=== PATIENT | male | born 1995 | race Caucasian/White ===

== ENCOUNTER → 2020-03-27 13:39 | Outpatient (CLI) | payer OTHER, SELFPAY ==
[2020-03-29 09:15] LABS: COVID19 Sendout Not Detected (Not Detect)
== END ==
PROVIDERS: Visit Provider Nurse Practitioner
DX: Z11.59 Encounter for screening for other viral diseases (principal)
CPT/HCPCS: 87635

== ENCOUNTER → 2020-04-20 | Outpatient (CLI) | payer OTHER, SELFPAY | PROVIDERS: Referring Provider Internal Medicine; Visit Provider Internal Medicine | DX: Z23 Encounter for immunization (principal) | CPT/HCPCS: 90471; 90686 ==

== ENCOUNTER → 2020-05-04 10:21 | Outpatient (CLI) | payer OTHER, SELFPAY ==
[2020-05-04 12:52] LABS: COVID19 -Nasal RAPID Negative (Negative)
== END ==
PROVIDERS: Visit Provider Physician Assistant
DX: R05 Cough (principal); J02.9 Acute pharyngitis, unspecified; R19.7 Diarrhea, unspecified
CPT/HCPCS: 87635

== ENCOUNTER → 2020-06-08 11:49 | Outpatient (CLI) | payer OTHER, SELFPAY ==
[2020-06-08 13:07] LABS: COVID19 -Nasal RAPID Negative (Negative)
== END ==
PROVIDERS: Visit Provider Physician Assistant
DX: Z11.59 Encounter for screening for other viral diseases (principal)
CPT/HCPCS: 87635

== ENCOUNTER 2020-08-01 19:09 | Emergency (ER) | payer OTHER, SELFPAY ==
[2020-08-01 19:32] VITALS: BP 125/79; PULSE 80; RESP 16; TEMP 36.8; O2SAT 100; BMI 21.5
--- NOTE | 2020-08-01 20:03 | ED.UPPEXIN ---
HPI - Extremity Injury (Upper) General Chief Complaint: Extremity Injury, Upper Stated Complaint: states pulled a muslce right shoulder Time Seen by Provider: 08/01/20 20:02 Source: patient Mode of arrival: Ambulatory Limitations: no limitations History of Present Illness HPI narrative: This is a 24-year-old male comes emergency department after pulling a muscle in his right shoulder. Patient states about 16;30 this afternoon patient was lifting a a approximately 30 lb bag of linen up with his right arm when he felt pain coming from the AC region and radiating down into the deltoid region. Patient denies any numbness, tingling or weakness. He states pushing down with his arm causes pain or if he tries to flex his arm beyond the level of the shoulder. Or if he tries to hold his arm straight out for long periods of time. Patient denies any prior injuries. He denies any neck, back or chest pain. Patient has not taken any medication for pain. He denies any other medical issues. No prior surgeries. No allergies to medications. Related Data Allergies Allergy/AdvReac Type Severity Reaction Status Date / Time No Known Drug Allergies Allergy Verified 08/01/20 19:33 Review of Systems Review of Systems ROS Unobtainable: All systems reviewed & are unremarkable except as noted in HPI and below Patient History Social History Smoking Status: Current every day smoker Smoking Status: Current every day smoker Substance Use Type: does not use Exam Narrative Exam Narrative: GENERAL: Alert and oriented x three, well-nourished, well-appearing male in mild distress. HEENT: Head normocephalic, atraumatic, EOMI, pupils reactive, face symmetric, moist mucous membranes NECK: Supple, full range of motion CARDIOVASCULAR: Regular rate and rhythm without murmurs, rubs or gallops. RESPIRATORY: Breath sounds equal bilaterally, no wheezes rales or rhonchi. ABDOMEN: Soft, nontender. Normoactive bowel sounds all 4 quadrants. No guarding or rebound, rigidity, no mass : No CVA tenderness BACK: No cervical, thoracic or lumbar vertebral point tenderness. Patient has normal range of motion. Patient's gait is normal. Muscle strength is 5/5 in upper extremities, call or contact centre coach is equal bilaterally so equal with push-pull. Patient has 2+ radial pulses bilaterally. No ecchymosis, bruising or erythema or swelling of the right shoulder. EXTREMITIES: Normal range of motion, no clubbing or edema. Neurovascularly intact. Patient does not have any distinct pain with palpation of the scapula, collar bone or over the AC joint but does develop discomfort at the proximal humeral head and several cm down. Patient has full range of motion but has increased pain when he extends or abduct his shoulder above the level of the shoulder. He does not have any pain when he touches his opposite shoulder, his opposite hip, or when he internally rotates and touches his back. Patient does have discomfort when he hold his arms out perfectly straight. Patient does not have any tenderness over the biceps tendon with rotation. NEUROLOGICAL: Cranial nerves II through XII grossly intact. Moving all extremities SKIN: Warm, dry, no petechiae, no rashes or lesions. Initial Vital Signs Initial Vital Signs: Vital Signs Temperature 98.3 F 08/01/20 19:32 Pulse Rate 80 08/01/20 19:32 Respiratory Rate 16 08/01/20 19:32 Blood Pressure 125/79 08/01/20 19:32 Pulse Oximetry 100 08/01/20 19:32 Course Orders Ordered: Discontinued Medications Ibuprofen (Ibuprofen 400 Mg Tablet) 800 mg PO NOW ONE Stop: 08/01/20 20:19 Last Admin: 08/01/20 20:22 Dose: 800 mg Documented by: BOOGIE Vital Signs Vital signs: Vital Signs - 8 hr 08/01/20 19:32 08/01/20 20:39 Temperature 98.3 F Pulse Rate 80 75 Respiratory Rate 16 16 Blood Pressure 125/79 119/70 Pulse Oximetry 100 100 MDM - Extremity Injury (Upper) MDM Narrative Medical decision making narrative: 24-year-old male arrives with complaint of musculoskeletal pain after lifting approximately 30 lb of linen. Patient continues to have symptoms. On exam patient does have some tenderness particularly with range of motion. No obvious tendon, ligamentous injury although this is a possibility. X-ray imaging was deferred as the likelihood of a bony injury is unlikely. Plan for RICE, NSAIDs and follow up if symptoms have not resolved for further evaluation. Discharge Plan Departure Patient Disposition: Home Clinical Impression: Right shoulder strain Instructions: DI for Shoulder Pain Activity Restrictions/Additional Instructions: Follow up with L&I in 1 week if no improvement. You may take ibuprofen to 600 mg every 6 hours as needed for pain and/or Tylenol up to a 1000 mg every 8 hours as needed for pain. Elevated affected body part to decrease swelling. OK to use ice pack on the affected body part. Use for 15-20 minutes each time, for 5-6x per day. If you develop worsening pain, numbness, tingling, discoloration of the affected body part, either see your doctor for an urgent re-assessment, or return to the Emergency Department. Return to the Emergency Department for any new or worsening symptoms. Stand Alone Forms: Work Release Note
[2020-08-01] MEDS: IBUPROFEN 400 MG TABLET 800 MG PO (20:22)
[2020-08-01 20:39] VITALS: BP 119/70; PULSE 75; RESP 16; O2SAT 100
== END 2020-08-01 20:40 | disposition home or self-care (01) ==
PROVIDERS: Emergency Provider Emergency Medicine
DX: S46.911A Strain of unspecified muscle, fascia and tendon at shoulder and upper arm level, right arm, initial encounter (principal); X50.0XXA Overexertion from strenuous movement or load, initial encounter; Y99.0 Civilian activity done for income or pay
CPT/HCPCS: 99281; 99282

== ENCOUNTER → 2020-08-25 11:14 | Outpatient (CLI) | payer OTHER, SELFPAY ==
[2020-08-25 11:34] LABS: Add Manual Diff / Slide Review NO; Basophils Absolute Auto 0 /uL (0-100); Basophils Percent Auto 0.3 % (0-2); Eosinophils Absolute Auto 200 /uL (0-450); Eosinophils Percent Auto 3.2 % (2-4); Hematocrit 45.3 % (41-53); Hemoglobin 15.1 g/dL (13.5-17.5); Lymphocytes Absolute Auto 2100 /uL (1100-4500); Lymphocytes Percent Auto 30.2 % (25-40); Mean Corpuscular HGB Conc 33.4 % (30-36); Mean Corpuscular Hemoglobin 29.4 PG (26-34); Monocytes Absolute Auto 600 /uL (0-900); Neutrophils Absolute Auto 4000 /uL (1500-7000); Neutrophils Percent Auto 58.3 % (50-75); Platelet Count 229 X10^3/uL (150-400); Red Blood Cell Count 5.15 X10^6/uL (4.5-5.9); Red Cell Distribution Width 12.5 % (11.6-14.8); White Blood Cell Count 6.9 X10^3/uL (4.5-11.0)
[2020-08-25 11:47] LABS: Erythrocyte Sedimentation Rate 2 MM/HR (0-15)
[2020-08-25 11:55] LABS: Alanine Aminotransferase 39 IU/L (<50); Albumin 4.5 g/dL (3.5-5.0); Albumin Globulin Ratio 1.2 (1.0-2.8); Alkaline Phosphatase 77 U/L (38-126); Aspartate Aminotransferase 43 IU/L (17-59); BUN Creatinine Ratio 17.6 (6-22); Bilirubin Total 1.1 mg/dL (0.2-1.3); Blood Urea Nitrogen 16 mg/dL (9-20); Calcium 10.4 mg/dL (8.4-10.2); Carbon Dioxide 31 mmol/L (22-32); Chloride 101 mmol/L (98-107); Estimated Glomerular Filt Rate > 60.0 mL/min (>60); Globulin 3.7 g/dL (1.7-4.1); Glucose 86 mg/dL (70-100); HEMOLYSIS < 15 (0-50); Potassium 4.7 mmol/L (3.4-5.1); Sodium 137 mmol/L (137-145); Total Protein 8.2 g/dL (6.3-8.2)
[2020-08-25 12:04] LABS: Rheumatoid Factor < 8.6 IU/mL (<12.0)
[2020-08-26 17:32] LABS: ANA Screen, IFA Negative (.)
[2020-09-01 17:36] LABS: HLA B27 Positive (.)
== END ==
PROVIDERS: PCP Family Medicine; Referring Provider Family Medicine; Visit Provider Family Medicine
DX: M25.50 Pain in unspecified joint (principal); M54.5 Low back pain
CPT/HCPCS: 36415; 80053; 81374; 85025; 85651; 86038; 86430

== ENCOUNTER → 2020-08-25 11:22 | Outpatient (CLI) | payer OTHER, SELFPAY ==
--- NOTE | 2020-08-25 11:24 | DI.RAD.S_ITS ---
PROCEDURE: XR LUMBAR SPINE 2-3V INDICATIONS: Chronic lower back pain TECHNIQUE: 3 views of the lumbar spine were acquired. COMPARISON: None. FINDINGS: Bones: 5 [id number] vertebrae are present. There is normal bony alignment. No vertebral body compression fractures. No suspicious bony lesions. Soft tissues: Overlying bowel gas pattern is normal. No suspicious soft tissue calcifications. IMPRESSION: Unremarkable radiographic examination of lumbar spine. Dictated by: Dany Caal M.D. on 08/25/2020 at 12:22 Approved by: Dany Caal M.D. on 08/25/2020 at 12:22
== END ==
PROVIDERS: PCP Family Medicine; Referring Provider Family Medicine; Visit Provider Family Medicine
DX: M54.5 Low back pain (principal); G89.29 Other chronic pain; M25.50 Pain in unspecified joint
CPT/HCPCS: 36415; 72100; 80053; 81374; 85025; 85651; 86038; 86430

== ENCOUNTER 2020-11-11 13:37 | Emergency (ER) | payer OTHER, SELFPAY ==
[2020-11-11 13:56] VITALS: BP 105/68; PULSE 66; RESP 15; TEMP 36.6; O2SAT 100; BMI 22.8
--- NOTE | 2020-11-11 15:37 | ED.BACK ---
HPI - Back Pain/Injury General Chief Complaint: Back Pain/Injury Stated Complaint: spine has seized, chronic pain Time Seen by Provider: 11/11/20 15:36 Source: patient Mode of arrival: Ambulatory Limitations: no limitations History of Present Illness HPI Narrative: 25-year-old male daily smoker with history of ankylosing spondylitis presents with a chief complaint of some midline back and rib pain that is been gradually worsening over the past weeks to months. He denies any injury and states this is the same pain that he has been dealing with though slightly worse. He denies any fever or chills. He has no history of IV drug abuse and does not use blood thinners. He denies any head or neck pain. He denies any chest pain, trouble breathing, cough. He has no nausea, vomiting or diarrhea. His pain is worse when he moves improves with rest. He denies any neurologic symptoms such as numbness, tingling or weakness. MD Complaint: back pain Onset (ago): month(s) Duration: constant and progressively worsening Similar Symptoms Previously: Yes Location: thoracic spine Severity: moderate Quality: sharp and aching Exacerbating factors: movement Associated symptoms: denies other symptoms Related Data Previous Rx's Medication Instructions Recorded valacyclovir 1 gram tablet 1,000 mg PO TID #21 tab 08/25/20 tramadol 50 mg tablet 50 mg PO Q8H PRN #20 tab 09/22/20 celecoxib 200 mg capsule 200 mg PO DAILY #30 cap 09/24/20 lamotrigine 25 mg tablet 50 mg PO DAILY #180 tab 09/24/20 hydrocodone-acetaminophen 1 tab PO Q4-6H PRN #10 tab 11/11/20 prednisone See Rx Instructions .ROUTE 11/11/20 .COMPLEX #30 tab Allergies Allergy/AdvReac Type Severity Reaction Status Date / Time No Known Drug Allergies Allergy Verified 11/11/20 13:58 Review of Systems Constitutional Constitutional: Denies chills, Denies fatigue, Denies fever(s), Denies frequent falls, Denies lethargy and Denies weakness Eyes Eyes: Denies change in vision, Denies eye discharge, Denies irritation and Denies loss of vision ENT Ears, Nose, Mouth, and Throat: Denies change in voice, Denies dizziness, Denies neck pain, Denies sore throat and Denies throat swelling Cardiovascular Cardiovascular: Denies chest pain, Denies irregular heart rhythm, Denies lightheadedness, Denies palpitations, Denies dyspnea, Denies dyspnea on exertion and Denies orthopnea Respiratory Respiratory: Denies cough, Denies dyspnea, Denies dyspnea on exertion and Denies wheezing Gastrointestinal Gastrointestinal: Denies abdominal pain, Denies change in bowel habits, Denies diarrhea, Denies nausea and Denies vomiting Musculoskeletal Musculoskeletal: Reports back pain, Denies neck pain and Denies numbness Integumentary/Breasts Skin/Breast: Denies pruritus, Denies erythema, Denies rash and Denies wounds Neurologic Neurologic: Denies behavioral changes, Denies confusion, Denies dizziness, Denies frequent falls, Denies loss of vision, Denies numbness and Denies weakness Psychiatric Psychiatric: Denies anxiety, Denies behavioral changes, Denies confusion, Denies depression, Denies homicidal ideation and Denies suicidal ideation Endocrine Endocrine: Denies fatigue, Denies flushing and Denies palpitations Hematologic/Lymphatic Hematologic/Lymphatic: Denies easy bruising Allergic/Immunologic Allergic/Immunologic: Denies urticaria, Denies throat swelling and Denies wheezing Patient History Medical History Anxiety (~2012) Bipolar disorder Chronic back pain (~2019) HIV (human immunodeficiency virus infection) (~2018) HSV (herpes simplex virus) anogenital infection Low back pain Migraines (~2013) Peptic ulcer disease (~2010) Polyarthralgia Shoulder pain (~2019) Tinnitus (~2018) Family History Mother Mental health problem Sister Suicide Mental health problem Sister Mental health problem Grandmother Cancer Mental health problem Grandfather Cancer History of heart disease Grandmother Arthritis Social History Smoking Status: Current every day smoker Smoking Status: Current every day smoker alcohol intake frequency: holidays/special occasions only Substance Use Type: does not use Exam Initial Vital Signs Initial Vital Signs: Vital Signs Temperature 97.9 F 11/11/20 13:56 Pulse Rate 66 11/11/20 13:56 Respiratory Rate 15 11/11/20 13:56 Blood Pressure 105/68 11/11/20 13:56 Pulse Oximetry 100 11/11/20 13:56 Course Vital Signs Vital signs: Vital Signs - 8 hr 11/11/20 13:56 Temperature 97.9 F Pulse Rate 66 Respiratory Rate 15 Blood Pressure 105/68 Pulse Oximetry 100 MDM - Back Pain/Injury MDM Narrative Medical decision making narrative: Patient with ongoing, slowly worsening back pain and a diagnosis of ankylosing spondylitis. He has no trauma and no systemic findings such as fever chills. He has no numbness, tingling or weakness. Multiple etiologies of back pain considered including; Epidural abscess, cauda equina, mass occupying lesion, and other considered, but thought unlikely given, history, physical. Extensive return precautions discussed and questions answered to his apparent satisfaction Discharge Plan Departure Patient Disposition: Home Clinical Impression: Chronic back pain Qualifiers: Back pain location: thoracic back pain Back pain laterality: unspecified Qualified Code(s): M54.6 - Pain in thoracic spine Instructions: DI for Back Strain or Sprain Activity Restrictions/Additional Instructions: *You have been diagnosed with [back pain likely related to her ankylosing spondylitis. There is no evidence of any neuro surgical emergency such as abscess, bleeding or other] *What to do: *Please continue to take your regular medications as directed. [x ] New medication prescriptions sent to your pharmacy: [[facility] in [place]] [ ] New medication written as a paper prescription [ ] No new medications given *Please follow up with your primary care provider in 2-3 days, call for an appointment. Let them know you were seen in the Emergency Department and that we ask that you be seen in follow up. We will electronically transmit a record of today's note if your PCP is in our system *If you do not have a primary care provider please contact the [facility] Resource line at [phone]. They will ask some questions about your medical history and help get you set up with a doctor in the community. *Return to Emergency Department if you should have any new, worsening or concerning symptoms, such as [fever greater than 101 F, shaking chills, loss of control of bowel or bladder, weakness in your legs worsening pain, persistent vomiting or other bothersome symptoms] Prescriptions: New prednisone 10 mg tablet See Rx Instructions .ROUTE .COMPLEX Qty: 30 RF: 0 hydrocodone-acetaminophen 5-325 mg tablet 1 tab PO Q4-6H PRN (Reason: pain) Qty: 10 RF: 0 No Action tramadol 50 mg tablet 50 mg PO Q8H PRN (Reason: pain) Qty: 20 RF: 0 valacyclovir 1 gram tablet 1,000 mg PO TID Qty: 21 RF: 3 lamotrigine [Lamictal] 25 mg tablet 50 mg PO DAILY Qty: 180 RF: 1 celecoxib [Celebrex] 200 mg capsule 200 mg PO DAILY Qty: 30 RF: 2 Referrals: Ajith Martin DO [Primary Care Provider] -
[2020-11-11 16:30] VITALS: BP 121/88; PULSE 65; O2SAT 100
== END 2020-11-11 16:32 | disposition home or self-care (01) ==
PROVIDERS: Emergency Provider Emergency Medicine; PCP Family Medicine
DX: M54.6 Pain in thoracic spine (principal)
CPT/HCPCS: 99281

== ENCOUNTER 2020-11-15 13:00 | Outpatient (RCR) | payer OTHER, SELFPAY ==
--- NOTE | 2020-09-27 16:53 | PT.OIE ---
Current Diagnoses Low back pain (09/27/20) Past Medical History (Last Updated 09/22/20 @ 21:12 by Peggy Ordonez) Anxiety (~2012) Bipolar disorder Chronic back pain (~2019) HIV (human immunodeficiency virus infection) (~2019) HSV (herpes simplex virus) anogenital infection Low back pain Migraines (~2013) Peptic ulcer disease (~2010) Polyarthralgia Shoulder pain (~2019) Tinnitus (~2018) Visit Care Team Role Provider Type Ajith Martin DO Attending Provider Physician Primary Care Provider Referring Provider Specialty: [facility] Address: [address] [place] [address], [facility] Email: [email or web address] Physical Therapy Initial Evaluation PT-OP-A Visit Information Start: 09/27/20 16:16 Freq: Status: Active Protocol: Document 09/27/20 16:16 (Rec: 09/27/20 16:52 [email or web address]) Out-Patient Physical Therapy Visit Information Visit Information Visit Type Initial Evaluation Visit Start Time 13:00 Visit Stop Time 13:45 Total Visit Minutes 45 Visit Number 07/19 Number of [employer] OFFICER Visits 0 Evaluation Information Evaluation Date 09/27/20 PT-OP-B Current Condition Start: 09/27/20 16:16 Freq: Status: Active Protocol: Document 09/27/20 16:16 (Rec: 09/27/20 16:52 [email or web address]) Current Condition History of Current Condition Onset Date 4-6 months ago Current Complaints LBP, radiating pain and soreness to posterior thighs History of Current Condition pt is 25-year-old male presents to the clinic with ongoing lower back pain since 4-6 months ago without any injury. He was recently diagnosed with ankylosing spondylitis based on his HLA- B27 test but X-rays shows negative finding. Pt reports his back pain varies depends on the day. Worst at sleep and feels like his back is fused in the morning. Staying in one position also feels stiff to him but moving around tends to manage his pain. Pt has been wearing OTC back brace all the time to reduce his back pain as well. He noticed he cannot bend forward d/t stiffness and significant pain . 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 Prior Treatments and Tests 08/25/20 IMPRESSION: Unremarkable radiographic examination of lumbar spine. Personal Factors Other Personal Factors That May Effect bipolar disorder type 2 Therapy/Recovery depression PT-OP-C Subjective Start: 09/27/20 16:16 Freq: Status: Active Protocol: Document 09/27/20 16:16 HH (Rec: 09/27/20 16:52 [email or web address]) Patient Questionnaires Oswestry Low Back Index Oswestry Score 26 Oswestry Impairment 20 to 39% Impaired (Score 20- 39) OP-PT Pain Assessment Location posterior thighs Intensity 4 Scale Used Numeric (0 - 10) Description Radiating Frequency Frequent Pain Aggravating Factors Sitting,Bending Pain Alleviating Factors Standing,Exercise LBP Pain Location Details lumbar region Intensity 6 Scale Used Numeric (0 - 10) Description Aching,Dull,Radiating Frequency Frequent Pain Aggravating Factors Position,Sitting,Bending Pain Alleviating Factors Exercise PT-OP-D Balance Start: 09/27/20 16:16 Freq: Status: Active Protocol: Document 09/27/20 16:16 HH (Rec: 09/27/20 16:52 [email or web address]) Balance Tests Single Limb Standing Single Limb- Right WFL Single Limb- Left WFL PT-OP-F Manual Assessment Start: 09/27/20 16:16 Freq: Status: Active Protocol: Document 09/27/20 16:16 HH (Rec: 09/27/20 16:52 [email or web address]) Manual Assessments Soft Tissue Assessment Soft Tissue Mobility Assessment mild hypertonicity at lumbar paraspinals bilaterally L>R PT-OP-H Neuro Start: 09/27/20 16:16 Freq: Status: Active Protocol: Document 09/27/20 16:16 HH (Rec: 09/27/20 16:52 [email or web address]) Sensation Evaluation Gross Sensation Gross Sensation WNL Deep Tendon Reflex & Clonus Assessment Deep Tendon Reflex Bilateral Achilles Deep Tendon Reflex 2+ Normal Bilateral Patellar Deep Tendon Reflex 2+ Normal PT-OP-J Posture/Palpation/Skin Start: 09/27/20 16:16 Freq: Status: Active Protocol: Document 09/27/20 16:16 HH (Rec: 09/27/20 16:52 [email or web address]) Posture Evaluation Position Standing T-Spine Posture Flattened L-Spine Posture Flattened,Decreased Lordosis Pelvis Posture Posterior Tilted Knee Posture (L) Genu Recurvatum,(R) Genu Recurvatum PT-OP-K Range of Motion Start: 09/27/20 16:16 Freq: Status: Active Protocol: Document 09/27/20 16:16 HH (Rec: 09/27/20 16:52 [email or web address]) Lumbar Spine Range of Motion Lumbar Spine Active Percentage Testing Position Standing ROM Limitations Soft Tissue Tightness,Pain Comments toe touch test= significant pain noted 14 inches from floor, lack of pelvic rotation and minimal lumbar segmental flexion noted. lateral flexion R= 15 inches lateral flexion L= 16 inches extension = WFL, shoulder pass heels Hip Goniometric Range of Motion Hip Right Active Hip ROM WFL Yes Straight Leg Raise 85 Left Active Hip ROM WFL Yes Straight Leg Raise 80 PT-OP-L Special Tests Start: 09/27/20 16:16 Freq: Status: Active Protocol: Document 09/27/20 16:16 HH (Rec: 09/27/20 16:52 [email or web address]) Special Tests Hip Special Tests Straight Leg Raise Test Results -ve Comments tightness noted at HS Scour Test Test Results -ve JET Test Results -ve PT-OP-M Strength Start: 09/27/20 16:16 Freq: Status: Active Protocol: Document 09/27/20 16:16 HH (Rec: 09/27/20 16:52 [email or web address]) Hip Strength Hip Manual Muscle Testing Right Flexion (L2) 4+ Good+ Extension (S1) 4+ Good+ Abduction 4+ Good+ Adduction 4+ Good+ External Rotation 4+ Good+ Internal Rotation 4+ Good+ Left Flexion (L2) 4 Good Extension (S1) 4+ Good+ Abduction 4+ Good+ Adduction 4+ Good+ External Rotation 4+ Good+ Internal Rotation 4+ Good+ Knee Strength Knee Manual Muscle Testing Right Flexion (S2) 5 Normal Extension (L3) 5 Normal Left Flexion (S2) 5 Normal Extension (L3) 5 Normal Ankle/Foot Strength Ankle and Foot Manual Muscle Testing Right Dorsiflexion (L4) 5 Normal Plantarflexion (S1) 5 Normal Left Dorsiflexion (L4) 5 Normal Plantarflexion (S1) 5 Normal PT-OP-T Assessment and Plan Start: 09/27/20 16:16 Freq: Status: Active Protocol: Document 09/27/20 16:16 (Rec: 09/27/20 16:52 [email or web address]) Physical Therapy Assessment Rehab Potential Rehabilitation Potential Good Evaluation Complexity Number of Personal Factors/Comorbidities 1-2 Number of Body Systems Impaired 1-2 Clinical Presentation at Evaluation Stable Impairments Impairments Activity Tolerance,Balance, Functional Activities, Functional Mobility,Gait,Pain, Posture,Sensation,Soft Tissue Mobility,Strength,Tone Goals HEP Impairment pt does not have a HEP Short Term Goal (STG) pt will be compliant to complete HEP safely and independently to improve his overall lumbar mobility and strength STG Duration 8 weeks activity tolerance Impairment pt cannot sit >30 mins, and needed to wear back brace Short Term Goal (STG) pt will be able to sit >30 mins without increase of back pain and able to wean off from using back brace to only at work. STG Duration 4 weeks Hotel Receptionist Goal (LTG) pt will be able to sit >1 hour without increase of back pain and able to completely wean off from wearing back brace LTG Duration 8 weeks pain Impairment pt has pain 6/10 frequently Short Term Goal (STG) pt will have no more than 4/10 pain in a daily basis STG Duration 4weeks Hotel Receptionist Goal (LTG) pt will have no more than 2/10 pain in a daily basis so pt can have more than 6 hours of sleep per day. LTG Duration 8 weeks oswestry Impairment pt scores 26 on Oswestry Short Term Goal (STG) pt will score <20 on Oswestry to improve his quality of life STG Duration 4 weeks Hotel Receptionist Goal (LTG) pt will score <15 on Oswestry to improve his quality of life LTG Duration 8 weeks Assessment Summary Assessment Pt is a 25 yo male here for his new ongoing LBP since 4-6 months ago. Pt was recently diagnosed with ankylosing spondylitis who has a family hx of this dx as well. However , his recent x-ray did not show visible joint changes. Upon assessment, pt does show matching symptoms of who has significant stiffness and pain in the morning / prolonged position. He has very limited lumbar flexion d/ t pain and prolonged use of his back brace. Pt denies tingling/ numbness but does have radiating pain down to his posterior thighs occasionally. His sensation/ strength remains intact. He will benefit from skilled therapy to improve his quality of life, sleep, and overall pain by increasing spinal mobility, stability and strength . Physical Therapy Plan Frequency and Duration Frequency of Treatment 2x/Week Duration of Treatment 8 weeks Plan of Care Start Date 09/27/20 Plan of Care End Date 11/26/20 Therapeutic Interventions Therapeutic Interventions Balance Training,Home Exercise Program,Joint Mobilizations, Manual Therapy,Neuromuscular Re-education,Patient/Caregiver Education,Self-Care/Home Management,Soft Tissue Mobilization,Taping, Therapeutic Activities, Therapeutic Exercises Modalities Cold Pack/Ice Massage,Electric Stimulation,Hot Packs, Infrared Therapy,Traction- Mechanical,Ultrasound Next Visit Focus/Plan Next Note Type Treatment Note Next Visit Plan check flexion extension side plank endurance supine knee to chest open book saeted flexion cat camel. childpose
--- NOTE | 2020-09-30 13:42 | PT.OTN ---
Current Diagnoses Low back pain (09/30/20) Physical Therapy Treatment Note PT-OP-A Visit Information Start: 09/27/20 16:16 Freq: Status: Active Protocol: Document 09/30/20 12:58 HH (Rec: 09/30/20 13:42 HH [id number]) Out-Patient Physical Therapy Visit Information Visit Information Visit Type Treatment Note Visit Start Time 13:01 Visit Stop Time 13:45 Total Visit Minutes 44 Visit Number 2 Number of RECYCLING CENTER OPERATOR Visits 0 PT-OP-B Current Condition Start: 09/27/20 16:16 Freq: Status: Active Protocol: Document 09/27/20 16:16 HH (Rec: 09/27/20 16:52 HH [email or web address]) Current Condition History of Current Condition Onset Date 4-6 months ago Current Complaints LBP, radiating pain and soreness to posterior thighs History of Current Condition pt is 25-year-old male presents to the clinic with ongoing lower back pain since 4-6 months ago without any injury. He was recently diagnosed with ankylosing spondylitis based on his HLA- B27 test but X-rays shows negative finding. Pt reports his back pain varies depends on the day. Worst at sleep and feels like his back is fused in the morning. Staying in one position also feels stiff to him but moving around tends to manage his pain. Pt has been wearing OTC back brace all the time to reduce his back pain as well. He noticed he cannot bend forward d/t stiffness and significant pain . 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 Prior Treatments and Tests 08/25/20 IMPRESSION: Unremarkable radiographic examination of lumbar spine. Personal Factors Other Personal Factors That May Effect bipolar disorder type 2 Therapy/Recovery depression PT-OP-C Subjective Start: 09/27/20 16:16 Freq: Status: Active Protocol: Document 09/30/20 12:58 HH (Rec: 09/30/20 13:42 HH [id number]) OP-PT Subjective Patient Comments Patient Comments Im doing pretty good Patient Reported Progress Same PT-OP-D Balance Start: 09/27/20 16:16 Freq: Status: Active Protocol: Document 09/27/20 16:16 HH (Rec: 09/27/20 16:52 HH [email or web address]) Balance Tests Single Limb Standing Single Limb- Right WFL Single Limb- Left WFL PT-OP-F Manual Assessment Start: 09/27/20 16:16 Freq: Status: Active Protocol: Document 09/27/20 16:16 HH (Rec: 09/27/20 16:52 [email or web address]) Manual Assessments Soft Tissue Assessment Soft Tissue Mobility Assessment mild hypertonicity at lumbar paraspinals bilaterally L>R PT-OP-H Neuro Start: 09/27/20 16:16 Freq: Status: Active Protocol: Document 09/27/20 16:16 HH (Rec: 09/27/20 16:52 [email or web address]) Sensation Evaluation Gross Sensation Gross Sensation WNL Deep Tendon Reflex & Clonus Assessment Deep Tendon Reflex Bilateral Achilles Deep Tendon Reflex 2+ Normal Bilateral Patellar Deep Tendon Reflex 2+ Normal PT-OP-J Posture/Palpation/Skin Start: 09/27/20 16:16 Freq: Status: Active Protocol: Document 09/27/20 16:16 HH (Rec: 09/27/20 16:52 [email or web address]) Posture Evaluation Position Standing T-Spine Posture Flattened L-Spine Posture Flattened,Decreased Lordosis Pelvis Posture Posterior Tilted Knee Posture (L) Genu Recurvatum,(R) Genu Recurvatum PT-OP-K Range of Motion Start: 09/27/20 16:16 Freq: Status: Active Protocol: Document 09/27/20 16:16 HH (Rec: 09/27/20 16:52 [email or web address]) Lumbar Spine Range of Motion Lumbar Spine Active Percentage Testing Position Standing ROM Limitations Soft Tissue Tightness,Pain Comments toe touch test= significant pain noted 14 inches from floor, lack of pelvic rotation and minimal lumbar segmental flexion noted. lateral flexion R= 15 inches lateral flexion L= 16 inches extension = WFL, shoulder pass heels Hip Goniometric Range of Motion Hip Right Active Hip ROM WFL Yes Straight Leg Raise 85 Left Active Hip ROM WFL Yes Straight Leg Raise 80 PT-OP-L Special Tests Start: 09/27/20 16:16 Freq: Status: Active Protocol: Document 09/27/20 16:16 HH (Rec: 09/27/20 16:52 [email or web address]) Special Tests Hip Special Tests Straight Leg Raise Test Results -ve Comments tightness noted at HS Scour Test Test Results -ve JET Test Results -ve PT-OP-M Strength Start: 09/27/20 16:16 Freq: Status: Active Protocol: Document 09/27/20 16:16 HH (Rec: 09/27/20 16:52 HH [email or web address]) Hip Strength Hip Manual Muscle Testing Right Flexion (L2) 4+ Good+ Extension (S1) 4+ Good+ Abduction 4+ Good+ Adduction 4+ Good+ External Rotation 4+ Good+ Internal Rotation 4+ Good+ Left Flexion (L2) 4 Good Extension (S1) 4+ Good+ Abduction 4+ Good+ Adduction 4+ Good+ External Rotation 4+ Good+ Internal Rotation 4+ Good+ Knee Strength Knee Manual Muscle Testing Right Flexion (S2) 5 Normal Extension (L3) 5 Normal Left Flexion (S2) 5 Normal Extension (L3) 5 Normal Ankle/Foot Strength Ankle and Foot Manual Muscle Testing Right Dorsiflexion (L4) 5 Normal Plantarflexion (S1) 5 Normal Left Dorsiflexion (L4) 5 Normal Plantarflexion (S1) 5 Normal PT-OP-Q Treatments Start: 09/27/20 16:16 Freq: Status: Active Protocol: Document 09/30/20 12:58 HH (Rec: 09/30/20 13:42 [id number]) Therapeutic Exercises Supine Exercises knee to chest Reps/Minutes 8 x2 Comments for HEP Prone Exercises cat camel Side bilateral Reps/Minutes 8 x2 Comments for HEP, cues on segmental control Sidelying Exercises open book Reps/Minutes 8 x2 Comments for HEP Sitting Exercises seated flexion Sitting Exercise Name floor touch Reps/Minutes 8 x2 Comments for HEP Manual Therapy Treatment Soft Tissue Mobilization QL Mobilization Type Sustained Pressure,Trigger Point Release Intensity/Depth Deep Body Position Sidelying Paraspinals Body Location lumbar Mobilization Type Sustained Pressure,Trigger Point Release Intensity/Depth Deep Body Position Prone PT-OP-T Assessment and Plan Start: 09/27/20 16:16 Freq: Status: Active Protocol: Document 09/30/20 12:58 (Rec: 09/30/20 13:42 [id number]) Physical Therapy Assessment Goals HEP Impairment pt does not have a HEP Short Term Goal (STG) pt will be compliant to complete HEP safely and independently to improve his overall lumbar mobility and strength STG Duration 8 weeks activity tolerance Impairment pt cannot sit >30 mins, and needed to wear back brace Short Term Goal (STG) pt will be able to sit >30 mins without increase of back pain and able to wean off from using back brace to only at work. STG Duration 4 weeks [facility] Goal (LTG) pt will be able to sit >1 hour without increase of back pain and able to completely wean off from wearing back brace LTG Duration 8 weeks pain Impairment pt has pain 6/10 frequently Short Term Goal (STG) pt will have no more than 4/10 pain in a daily basis STG Duration 4weeks Armhole Baster Jumpbasting Goal (LTG) pt will have no more than 2/10 pain in a daily basis so pt can have more than 6 hours of sleep per day. LTG Duration 8 weeks oswestry Impairment pt scores 26 on Oswestry Short Term Goal (STG) pt will score <20 on Oswestry to improve his quality of life STG Duration 4 weeks Armhole Baster Jumpbasting Goal (LTG) pt will score <15 on Oswestry to improve his quality of life LTG Duration 8 weeks Assessment Summary Assessment This session focused on lumbar mobility and pt sandra session very well. Pt has difficulty with segmental flexion at lumbar spine but improved after cueing. Will assess pt's core endurance next time Physical Therapy Plan Frequency and Duration Frequency of Treatment 2x/Week Duration of Treatment 8 weeks Plan of Care Start Date 09/27/20 Plan of Care End Date 11/26/20 Therapeutic Interventions Therapeutic Interventions Balance Training,Home Exercise Program,Joint Mobilizations, Manual Therapy,Neuromuscular Re-education,Patient/Caregiver Education,Self-Care/Home Management,Soft Tissue Mobilization,Taping, Therapeutic Activities, Therapeutic Exercises Modalities Cold Pack/Ice Massage,Electric Stimulation,Hot Packs, Infrared Therapy,Traction- Mechanical,Ultrasound Next Visit Focus/Plan Next Note Type Treatment Note Next Visit Plan check flexion extension side plank endurance supine knee to chest open book saeted flexion cat camel. childpose
--- NOTE | 2020-10-04 13:48 | PT.OTN ---
Current Diagnoses Low back pain (10/04/20) Physical Therapy Treatment Note PT-OP-A Visit Information Start: 09/27/20 16:16 Freq: Status: Active Protocol: Document 10/04/20 12:58 HH (Rec: 10/04/20 13:47 HH [id number]) Out-Patient Physical Therapy Visit Information Visit Information Visit Type Treatment Note Visit Start Time 13:00 Visit Stop Time 13:43 Total Visit Minutes 43 Visit Number 3 Number of RAND MAKER Visits 0 PT-OP-B Current Condition Start: 09/27/20 16:16 Freq: Status: Active Protocol: Document 09/27/20 16:16 HH (Rec: 09/27/20 16:52 HH [email or web address]) Current Condition History of Current Condition Onset Date 4-6 months ago Current Complaints LBP, radiating pain and soreness to posterior thighs History of Current Condition pt is 25-year-old male presents to the clinic with ongoing lower back pain since 4-6 months ago without any injury. He was recently diagnosed with ankylosing spondylitis based on his HLA- B27 test but X-rays shows negative finding. Pt reports his back pain varies depends on the day. Worst at sleep and feels like his back is fused in the morning. Staying in one position also feels stiff to him but moving around tends to manage his pain. Pt has been wearing OTC back brace all the time to reduce his back pain as well. He noticed he cannot bend forward d/t stiffness and significant pain . 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 Prior Treatments and Tests 08/25/20 IMPRESSION: Unremarkable radiographic examination of lumbar spine. Personal Factors Other Personal Factors That May Effect bipolar disorder type 2 Therapy/Recovery depression PT-OP-C Subjective Start: 09/27/20 16:16 Freq: Status: Active Protocol: Document 10/04/20 12:58 HH (Rec: 10/04/20 13:47 HH [id number]) OP-PT Subjective Patient Comments Patient Comments I have no pain today and i woke up just fine. The ex has been helping Patient Reported Progress Improving PT-OP-D Balance Start: 09/27/20 16:16 Freq: Status: Active Protocol: Document 09/27/20 16:16 HH (Rec: 09/27/20 16:52 [email or web address]) Balance Tests Single Limb Standing Single Limb- Right WFL Single Limb- Left WFL PT-OP-E Functional Tests Start: 09/27/20 16:16 Freq: Status: Active Protocol: Document 10/04/20 12:58 HH (Rec: 10/04/20 13:47 [id number]) Functional Tests Other trunk extensor endurance test Comment extension= 74s trunk flexion test Comment flexion= 36s plank Name of Test side plank L, R Comment L= 31 s, R= 32s PT-OP-F Manual Assessment Start: 09/27/20 16:16 Freq: Status: Active Protocol: Document 09/27/20 16:16 HH (Rec: 09/27/20 16:52 [email or web address]) Manual Assessments Soft Tissue Assessment Soft Tissue Mobility Assessment mild hypertonicity at lumbar paraspinals bilaterally L>R PT-OP-H Neuro Start: 09/27/20 16:16 Freq: Status: Active Protocol: Document 09/27/20 16:16 HH (Rec: 09/27/20 16:52 [email or web address]) Sensation Evaluation Gross Sensation Gross Sensation WNL Deep Tendon Reflex & Clonus Assessment Deep Tendon Reflex Bilateral Achilles Deep Tendon Reflex 2+ Normal Bilateral Patellar Deep Tendon Reflex 2+ Normal PT-OP-J Posture/Palpation/Skin Start: 09/27/20 16:16 Freq: Status: Active Protocol: Document 09/27/20 16:16 HH (Rec: 09/27/20 16:52 [email or web address]) Posture Evaluation Position Standing T-Spine Posture Flattened L-Spine Posture Flattened,Decreased Lordosis Pelvis Posture Posterior Tilted Knee Posture (L) Genu Recurvatum,(R) Genu Recurvatum PT-OP-K Range of Motion Start: 09/27/20 16:16 Freq: Status: Active Protocol: Document 09/27/20 16:16 HH (Rec: 09/27/20 16:52 [email or web address]) Lumbar Spine Range of Motion Lumbar Spine Active Percentage Testing Position Standing ROM Limitations Soft Tissue Tightness,Pain Comments toe touch test= significant pain noted 14 inches from floor, lack of pelvic rotation and minimal lumbar segmental flexion noted. lateral flexion R= 15 inches lateral flexion L= 16 inches extension = WFL, shoulder pass heels Hip Goniometric Range of Motion Hip Right Active Hip ROM WFL Yes Straight Leg Raise 85 Left Active Hip ROM WFL Yes Straight Leg Raise 80 PT-OP-L Special Tests Start: 09/27/20 16:16 Freq: Status: Active Protocol: Document 09/27/20 16:16 HH (Rec: 09/27/20 16:52 [email or web address]) Special Tests Hip Special Tests Straight Leg Raise Test Results -ve Comments tightness noted at HS Scour Test Test Results -ve JET Test Results -ve PT-OP-M Strength Start: 09/27/20 16:16 Freq: Status: Active Protocol: Document 09/27/20 16:16 HH (Rec: 09/27/20 16:52 [email or web address]) Hip Strength Hip Manual Muscle Testing Right Flexion (L2) 4+ Good+ Extension (S1) 4+ Good+ Abduction 4+ Good+ Adduction 4+ Good+ External Rotation 4+ Good+ Internal Rotation 4+ Good+ Left Flexion (L2) 4 Good Extension (S1) 4+ Good+ Abduction 4+ Good+ Adduction 4+ Good+ External Rotation 4+ Good+ Internal Rotation 4+ Good+ Knee Strength Knee Manual Muscle Testing Right Flexion (S2) 5 Normal Extension (L3) 5 Normal Left Flexion (S2) 5 Normal Extension (L3) 5 Normal Ankle/Foot Strength Ankle and Foot Manual Muscle Testing Right Dorsiflexion (L4) 5 Normal Plantarflexion (S1) 5 Normal Left Dorsiflexion (L4) 5 Normal Plantarflexion (S1) 5 Normal PT-OP-Q Treatments Start: 09/27/20 16:16 Freq: Status: Active Protocol: Document 10/04/20 12:58 (Rec: 10/04/20 13:47 [id number]) Therapeutic Exercises Supine Exercises hamstrings stretch Side bilateral Reps/Minutes 15 sec hold x5 Prone Exercises cat camel Side bilateral Reps/Minutes 8 x2 Comments cues on segmental control, pressure at L SIJ Sidelying Exercises open book Reps/Minutes 8 x2 Sitting Exercises seated flexion Sitting Exercise Name floor touch Reps/Minutes 8 x2 Standing Exercises jose curl Equipment Used 10lbs ball Reps/Minutes 8 x1 Comments cues on segmental flexion Manual Therapy Treatment Soft Tissue Mobilization QL Mobilization Type Sustained Pressure,Trigger Point Release Intensity/Depth Deep Body Position Sidelying Comments less discomfort noted . Paraspinals Body Location lumbar Mobilization Type Sustained Pressure,Trigger Point Release Intensity/Depth Deep Body Position Prone Comments less discomfort noted . PT-OP-T Assessment and Plan Start: 09/27/20 16:16 Freq: Status: Active Protocol: Document 10/04/20 12:58 HH (Rec: 10/04/20 13:47 HH [id number]) Physical Therapy Assessment Goals HEP Impairment pt does not have a HEP Short Term Goal (STG) pt will be compliant to complete HEP safely and independently to improve his overall lumbar mobility and strength STG Duration 8 weeks activity tolerance Impairment pt cannot sit >30 mins, and needed to wear back brace Short Term Goal (STG) pt will be able to sit >30 mins without increase of back pain and able to wean off from using back brace to only at work. STG Duration 4 weeks Insurance Administrative Assistant Goal (LTG) pt will be able to sit >1 hour without increase of back pain and able to completely wean off from wearing back brace LTG Duration 8 weeks pain Impairment pt has pain 6/10 frequently Short Term Goal (STG) pt will have no more than 4/10 pain in a daily basis STG Duration 4weeks Insurance Administrative Assistant Goal (LTG) pt will have no more than 2/10 pain in a daily basis so pt can have more than 6 hours of sleep per day. LTG Duration 8 weeks oswestry Impairment pt scores 26 on Oswestry Short Term Goal (STG) pt will score <20 on Oswestry to improve his quality of life STG Duration 4 weeks Insurance Administrative Assistant Goal (LTG) pt will score <15 on Oswestry to improve his quality of life LTG Duration 8 weeks Assessment Summary Assessment Pt reports of no pain today with good mobility. He also shows improved segmental flexion mobility as well. Added HS stretch today. Physical Therapy Plan Frequency and Duration Frequency of Treatment 2x/Week Duration of Treatment 8 weeks Plan of Care Start Date 09/27/20 Plan of Care End Date 11/26/20 Therapeutic Interventions Therapeutic Interventions Balance Training,Home Exercise Program,Joint Mobilizations, Manual Therapy,Neuromuscular Re-education,Patient/Caregiver Education,Self-Care/Home Management,Soft Tissue Mobilization,Taping, Therapeutic Activities, Therapeutic Exercises Modalities Cold Pack/Ice Massage,Electric Stimulation,Hot Packs, Infrared Therapy,Traction- Mechanical,Ultrasound Next Visit Focus/Plan Next Note Type Treatment Note Next Visit Plan check flexion extension side plank endurance supine knee to chest open book saeted flexion cat camel. childpose
--- NOTE | 2020-10-11 13:55 | PT.OTN ---
Current Diagnoses Low back pain (10/11/20) Physical Therapy Treatment Note PT-OP-A Visit Information Start: 09/27/20 16:16 Freq: Status: Active Protocol: Document 10/11/20 13:05 SP (Rec: 10/11/20 14:29 SP [id number]) Out-Patient Physical Therapy Visit Information Visit Information Visit Type Treatment Note Visit Start Time 13:05 Visit Stop Time 13:55 Total Visit Minutes 50 Visit Number 10/17 Number of IGNITER ASSEMBLER Visits 1 Evaluation Information Evaluation Date 09/27/20 PT-OP-B Current Condition Start: 09/27/20 16:16 Freq: Status: Active Protocol: Document 09/27/20 16:16 HH (Rec: 09/27/20 16:52 HH [email or web address]) Current Condition History of Current Condition Onset Date 4-6 months ago Current Complaints LBP, radiating pain and soreness to posterior thighs History of Current Condition pt is 25-year-old male presents to the clinic with ongoing lower back pain since 4-6 months ago without any injury. He was recently diagnosed with ankylosing spondylitis based on his HLA- B27 test but X-rays shows negative finding. Pt reports his back pain varies depends on the day. Worst at sleep and feels like his back is fused in the morning. Staying in one position also feels stiff to him but moving around tends to manage his pain. Pt has been wearing OTC back brace all the time to reduce his back pain as well. He noticed he cannot bend forward d/t stiffness and significant pain . 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 Prior Treatments and Tests 08/25/20 IMPRESSION: Unremarkable radiographic examination of lumbar spine. Personal Factors Other Personal Factors That May Effect bipolar disorder type 2 Therapy/Recovery depression PT-OP-C Subjective Start: 09/27/20 16:16 Freq: Status: Active Protocol: Document 10/11/20 13:05 SP (Rec: 10/11/20 14:29 SP [id number]) OP-PT Subjective Patient Comments Patient Comments I woke up in pain, hard time with breath, had to call in work cancel today, took shower and pain meds pre tx to help decrease pain 7/10 upon arrival and help w/ movement. Patient Reported Progress Same PT-OP-D Balance Start: 09/27/20 16:16 Freq: Status: Active Protocol: Document 09/27/20 16:16 HH (Rec: 09/27/20 16:52 [email or web address]) Balance Tests Single Limb Standing Single Limb- Right WFL Single Limb- Left WFL PT-OP-E Functional Tests Start: 09/27/20 16:16 Freq: Status: Active Protocol: Document 10/04/20 12:58 HH (Rec: 10/04/20 13:47 HH [id number]) Functional Tests Other trunk extensor endurance test Comment extension= 74s trunk flexion test Comment flexion= 36s plank Name of Test side plank L, R Comment L= 31 s, R= 32s PT-OP-F Manual Assessment Start: 09/27/20 16:16 Freq: Status: Active Protocol: Document 09/27/20 16:16 HH (Rec: 09/27/20 16:52 [email or web address]) Manual Assessments Soft Tissue Assessment Soft Tissue Mobility Assessment mild hypertonicity at lumbar paraspinals bilaterally L>R PT-OP-H Neuro Start: 09/27/20 16:16 Freq: Status: Active Protocol: Document 09/27/20 16:16 HH (Rec: 09/27/20 16:52 [email or web address]) Sensation Evaluation Gross Sensation Gross Sensation WNL Deep Tendon Reflex & Clonus Assessment Deep Tendon Reflex Bilateral Achilles Deep Tendon Reflex 2+ Normal Bilateral Patellar Deep Tendon Reflex 2+ Normal PT-OP-J Posture/Palpation/Skin Start: 09/27/20 16:16 Freq: Status: Active Protocol: Document 09/27/20 16:16 HH (Rec: 09/27/20 16:52 [email or web address]) Posture Evaluation Position Standing T-Spine Posture Flattened L-Spine Posture Flattened,Decreased Lordosis Pelvis Posture Posterior Tilted Knee Posture (L) Genu Recurvatum,(R) Genu Recurvatum PT-OP-K Range of Motion Start: 09/27/20 16:16 Freq: Status: Active Protocol: Document 09/27/20 16:16 HH (Rec: 09/27/20 16:52 [email or web address]) Lumbar Spine Range of Motion Lumbar Spine Active Percentage Testing Position Standing ROM Limitations Soft Tissue Tightness,Pain Comments toe touch test= significant pain noted 14 inches from floor, lack of pelvic rotation and minimal lumbar segmental flexion noted. lateral flexion R= 15 inches lateral flexion L= 16 inches extension = WFL, shoulder pass heels Hip Goniometric Range of Motion Hip Right Active Hip ROM WFL Yes Straight Leg Raise 85 Left Active Hip ROM WFL Yes Straight Leg Raise 80 PT-OP-L Special Tests Start: 09/27/20 16:16 Freq: Status: Active Protocol: Document 09/27/20 16:16 HH (Rec: 09/27/20 16:52 HH [email or web address]) Special Tests Hip Special Tests Straight Leg Raise Test Results -ve Comments tightness noted at HS Scour Test Test Results -ve JET Test Results -ve PT-OP-M Strength Start: 09/27/20 16:16 Freq: Status: Active Protocol: Document 09/27/20 16:16 HH (Rec: 09/27/20 16:52 HH [email or web address]) Hip Strength Hip Manual Muscle Testing Right Flexion (L2) 4+ Good+ Extension (S1) 4+ Good+ Abduction 4+ Good+ Adduction 4+ Good+ External Rotation 4+ Good+ Internal Rotation 4+ Good+ Left Flexion (L2) 4 Good Extension (S1) 4+ Good+ Abduction 4+ Good+ Adduction 4+ Good+ External Rotation 4+ Good+ Internal Rotation 4+ Good+ Knee Strength Knee Manual Muscle Testing Right Flexion (S2) 5 Normal Extension (L3) 5 Normal Left Flexion (S2) 5 Normal Extension (L3) 5 Normal Ankle/Foot Strength Ankle and Foot Manual Muscle Testing Right Dorsiflexion (L4) 5 Normal Plantarflexion (S1) 5 Normal Left Dorsiflexion (L4) 5 Normal Plantarflexion (S1) 5 Normal PT-OP-Q Treatments Start: 09/27/20 16:16 Freq: Status: Active Protocol: Document 10/11/20 13:05 SP (Rec: 10/11/20 14:29 SP [id number]) Therapeutic Exercises Supine Exercises sciatic nerve glide Supine Exercise Name w/ ankle pump (added HEP) Side left Equipment Used strap Reps/Minutes 2x10 Comments cued tolerant/benificial range hamstrings stretch Side bilateral Reps/Minutes 15 sec hold x5 Comments HEP knee to chest Supine Exercise Name does at home, did not perform during tx Reps/Minutes 8 x2 Comments HEP Prone Exercises child's pose Prone Exercise Name PT tx assessment Reps/Minutes 20 sec quadruped lateral pelvis Prone Exercise Name wag tail- PT tx assessment Side bilateral Reps/Minutes x5 Comments various trunk flex ranges- no change in pain, not worse quadruped KTC Prone Exercise Name PT tx assessment Side bilateral Reps/Minutes x6 cat camel Prone Exercise Name extension feels better than flexion- little improvement Side bilateral Reps/Minutes 8 x2 Comments cues on segmental control, pressure at L SIJ Sidelying Exercises open book Reps/Minutes 8 x2 Comments HEP Standing Exercises jose curl Equipment Used AROM today due to LBP Reps/Minutes 8 x1 Comments cues on segmental flexion Manual Therapy Treatment Soft Tissue Mobilization QL Body Location L QL Mobilization Type Sustained Pressure,Trigger Point Release Intensity/Depth Deep Body Position Sidelying Comments less discomfort noted . Paraspinals Body Location L lumbar Mobilization Type Sustained Pressure,Trigger Point Release Intensity/Depth Deep Body Position Prone Comments less discomfort noted . PT-OP-R Modalities Start: 09/27/20 16:16 Freq: Status: Active Protocol: Document 10/11/20 13:05 SP (Rec: 10/11/20 14:29 SP [id number]) Electric Stimulation Electric Stimulation IFC Body Location B LS Duration (Minutes) 8 Intensity 23 Target/Sweep Target Patient Position Sitting Combined With Heat/Cold Hot Pack Comments good tolerance/beneficial PT-OP-T Assessment and Plan Start: 09/27/20 16:16 Freq: Status: Active Protocol: Document 10/11/20 13:05 SP (Rec: 10/11/20 14:29 SP [id number]) Physical Therapy Assessment Goals HEP Impairment pt does not have a HEP Short Term Goal (STG) pt will be compliant to complete HEP safely and independently to improve his overall lumbar mobility and strength STG Duration 8 weeks activity tolerance Impairment pt cannot sit >30 mins, and needed to wear back brace Short Term Goal (STG) pt will be able to sit >30 mins without increase of back pain and able to wean off from using back brace to only at work. STG Duration 4 weeks Racing Manager Goal (LTG) pt will be able to sit >1 hour without increase of back pain and able to completely wean off from wearing back brace LTG Duration 8 weeks pain Impairment pt has pain 6/10 frequently Short Term Goal (STG) pt will have no more than 4/10 pain in a daily basis STG Duration 4weeks Custodial Goal (LTG) pt will have no more than 2/10 pain in a daily basis so pt can have more than 6 hours of sleep per day. LTG Duration 8 weeks oswestry Impairment pt scores 26 on Oswestry Short Term Goal (STG) pt will score <20 on Oswestry to improve his quality of life STG Duration 4 weeks Racing Manager Goal (LTG) pt will score <15 on Oswestry to improve his quality of life LTG Duration 8 weeks Assessment Summary Assessment Pt arrived guarded in LS, rounded shoulders 7/10 LBP. Initiated tx with self open book and manual on L LS with slight improvement in ROM. Pt able to complete HEP review, initiated quadruped hip flexion, lateral flexion and modified child's pose movements during tx. Continued carryover standing modified Jose curl with no resistance today due to pain tolerance ROM hands to knees w / TA assist return. Pt welcoming to modalites for pain control with good benefits IFC w/ MHP. Pt stated decreased to 4/10 pain when leaving appt. Physical Therapy Plan Frequency and Duration Frequency of Treatment 2x/Week Duration of Treatment 8 weeks Plan of Care Start Date 09/27/20 Plan of Care End Date 11/26/20 Therapeutic Interventions Therapeutic Interventions Balance Training,Home Exercise Program,Joint Mobilizations, Manual Therapy,Neuromuscular Re-education,Patient/Caregiver Education,Self-Care/Home Management,Soft Tissue Mobilization,Taping, Therapeutic Activities, Therapeutic Exercises Modalities Cold Pack/Ice Massage,Electric Stimulation,Hot Packs, Infrared Therapy,Traction- Mechanical,Ultrasound Next Visit Focus/Plan Next Note Type Treatment Note Next Visit Plan check flexion extension side plank endurance supine knee to chest open book saeted flexion cat camel. childpose
--- NOTE | 2020-10-14 13:48 | PT.OTN ---
Current Diagnoses Low back pain (10/14/20) Physical Therapy Treatment Note PT-OP-A Visit Information Start: 09/27/20 16:16 Freq: Status: Active Protocol: Document 10/14/20 13:02 SP (Rec: 10/14/20 14:03 SP [id number]) Out-Patient Physical Therapy Visit Information Visit Information Visit Type Treatment Note Visit Start Time 13:02 Visit Stop Time 13:48 Total Visit Minutes 46 Visit Number 11/16 Number of COLOR BUFFER Visits 2 Evaluation Information Evaluation Date 09/27/20 PT-OP-B Current Condition Start: 09/27/20 16:16 Freq: Status: Active Protocol: Document 09/27/20 16:16 HH (Rec: 09/27/20 16:52 HH [email or web address]) Current Condition History of Current Condition Onset Date 4-6 months ago Current Complaints LBP, radiating pain and soreness to posterior thighs History of Current Condition pt is 25-year-old male presents to the clinic with ongoing lower back pain since 4-6 months ago without any injury. He was recently diagnosed with ankylosing spondylitis based on his HLA- B27 test but X-rays shows negative finding. Pt reports his back pain varies depends on the day. Worst at sleep and feels like his back is fused in the morning. Staying in one position also feels stiff to him but moving around tends to manage his pain. Pt has been wearing OTC back brace all the time to reduce his back pain as well. He noticed he cannot bend forward d/t stiffness and significant pain . 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 Prior Treatments and Tests 08/25/20 IMPRESSION: Unremarkable radiographic examination of lumbar spine. Personal Factors Other Personal Factors That May Effect bipolar disorder type 2 Therapy/Recovery depression PT-OP-C Subjective Start: 09/27/20 16:16 Freq: Status: Active Protocol: Document 10/14/20 13:02 SP (Rec: 10/14/20 14:03 SP [id number]) OP-PT Subjective Patient Comments Patient Comments Pt stated did fairly well after last tx. Pt moves very guarded in LS with rounded posture. Pt stated today is the 3rd day having myalgia pinch nerve pain symptoms in R glut into medial thigh, stretches haven't helped, having to stay out of work due to pain. Patient Reported Progress Worse PT-OP-D Balance Start: 09/27/20 16:16 Freq: Status: Active Protocol: Document 09/27/20 16:16 HH (Rec: 09/27/20 16:52 [email or web address]) Balance Tests Single Limb Standing Single Limb- Right WFL Single Limb- Left WFL PT-OP-E Functional Tests Start: 09/27/20 16:16 Freq: Status: Active Protocol: Document 10/04/20 12:58 HH (Rec: 10/04/20 13:47 HH [id number]) Functional Tests Other trunk extensor endurance test Comment extension= 74s trunk flexion test Comment flexion= 36s plank Name of Test side plank L, R Comment L= 31 s, R= 32s PT-OP-F Manual Assessment Start: 09/27/20 16:16 Freq: Status: Active Protocol: Document 09/27/20 16:16 HH (Rec: 09/27/20 16:52 [email or web address]) Manual Assessments Soft Tissue Assessment Soft Tissue Mobility Assessment mild hypertonicity at lumbar paraspinals bilaterally L>R PT-OP-H Neuro Start: 09/27/20 16:16 Freq: Status: Active Protocol: Document 09/27/20 16:16 HH (Rec: 09/27/20 16:52 [email or web address]) Sensation Evaluation Gross Sensation Gross Sensation WNL Deep Tendon Reflex & Clonus Assessment Deep Tendon Reflex Bilateral Achilles Deep Tendon Reflex 2+ Normal Bilateral Patellar Deep Tendon Reflex 2+ Normal PT-OP-J Posture/Palpation/Skin Start: 09/27/20 16:16 Freq: Status: Active Protocol: Document 09/27/20 16:16 HH (Rec: 09/27/20 16:52 [email or web address]) Posture Evaluation Position Standing T-Spine Posture Flattened L-Spine Posture Flattened,Decreased Lordosis Pelvis Posture Posterior Tilted Knee Posture (L) Genu Recurvatum,(R) Genu Recurvatum PT-OP-K Range of Motion Start: 09/27/20 16:16 Freq: Status: Active Protocol: Document 09/27/20 16:16 HH (Rec: 09/27/20 16:52 [email or web address]) Lumbar Spine Range of Motion Lumbar Spine Active Percentage Testing Position Standing ROM Limitations Soft Tissue Tightness,Pain Comments toe touch test= significant pain noted 14 inches from floor, lack of pelvic rotation and minimal lumbar segmental flexion noted. lateral flexion R= 15 inches lateral flexion L= 16 inches extension = WFL, shoulder pass heels Hip Goniometric Range of Motion Hip Right Active Hip ROM WFL Yes Straight Leg Raise 85 Left Active Hip ROM WFL Yes Straight Leg Raise 80 PT-OP-L Special Tests Start: 09/27/20 16:16 Freq: Status: Active Protocol: Document 09/27/20 16:16 HH (Rec: 09/27/20 16:52 HH [email or web address]) Special Tests Hip Special Tests Straight Leg Raise Test Results -ve Comments tightness noted at HS Scour Test Test Results -ve JET Test Results -ve PT-OP-M Strength Start: 09/27/20 16:16 Freq: Status: Active Protocol: Document 09/27/20 16:16 HH (Rec: 09/27/20 16:52 [email or web address]) Hip Strength Hip Manual Muscle Testing Right Flexion (L2) 4+ Good+ Extension (S1) 4+ Good+ Abduction 4+ Good+ Adduction 4+ Good+ External Rotation 4+ Good+ Internal Rotation 4+ Good+ Left Flexion (L2) 4 Good Extension (S1) 4+ Good+ Abduction 4+ Good+ Adduction 4+ Good+ External Rotation 4+ Good+ Internal Rotation 4+ Good+ Knee Strength Knee Manual Muscle Testing Right Flexion (S2) 5 Normal Extension (L3) 5 Normal Left Flexion (S2) 5 Normal Extension (L3) 5 Normal Ankle/Foot Strength Ankle and Foot Manual Muscle Testing Right Dorsiflexion (L4) 5 Normal Plantarflexion (S1) 5 Normal Left Dorsiflexion (L4) 5 Normal Plantarflexion (S1) 5 Normal PT-OP-Q Treatments Start: 09/27/20 16:16 Freq: Status: Active Protocol: Document 10/14/20 13:02 SP (Rec: 10/14/20 14:03 SP [id number]) Therapeutic Exercises Supine Exercises pelvic realignment ex Supine Exercise Name hip ext & adduction isometric, SL pelvic lift Side right Reps/Minutes 3 sec hold x5 each sciatic nerve glide Supine Exercise Name w/ ankle pump (added HEP) Side left Equipment Used used grasp behind knee today ( not strap) Reps/Minutes x10 Comments cued tolerant/beneficial range knee to chest Supine Exercise Name HEP review Reps/Minutes 8 x2 Comments good response- does often at home early am warm up Prone Exercises child's pose Prone Exercise Name into thread needle today Reps/Minutes 20 sec x2 Comments little tighter on L under shld blade - good response to LS & TS range sandra quadruped lateral pelvis Prone Exercise Name wag tail Side bilateral Reps/Minutes x5 Comments various trunk flex ranges- no change in pain, little tight across L5 cat camel Prone Exercise Name extension feels better than flexion- little improvement Side bilateral Reps/Minutes 8 x2 Comments cues on segmental control, pressure at L SIJ Manual Therapy Treatment Soft Tissue Mobilization QL Body Location R QL Mobilization Type Sustained Pressure,Trigger Point Release Intensity/Depth Deep Body Position Sidelying Comments less discomfort noted . Paraspinals Body Location R lumbar Mobilization Type Sustained Pressure,Trigger Point Release Intensity/Depth Deep Body Position Prone Comments less discomfort noted . PT-OP-R Modalities Start: 09/27/20 16:16 Freq: Status: Active Protocol: Document 10/11/20 13:05 SP (Rec: 10/11/20 14:29 SP [id number]) Electric Stimulation Electric Stimulation IFC Body Location B LS Duration (Minutes) 8 Intensity 23 Target/Sweep Target Patient Position Sitting Combined With Heat/Cold Hot Pack Comments good tolerance/beneficial PT-OP-T Assessment and Plan Start: 09/27/20 16:16 Freq: Status: Active Protocol: Document 10/14/20 13:02 SP (Rec: 10/14/20 14:03 SP [id number]) Physical Therapy Assessment Goals HEP Impairment pt does not have a HEP Short Term Goal (STG) pt will be compliant to complete HEP safely and independently to improve his overall lumbar mobility and strength STG Duration 8 weeks activity tolerance Impairment pt cannot sit >30 mins, and needed to wear back brace Short Term Goal (STG) pt will be able to sit >30 mins without increase of back pain and able to wean off from using back brace to only at work. STG Duration 4 weeks Fpc Goal (LTG) pt will be able to sit >1 hour without increase of back pain and able to completely wean off from wearing back brace LTG Duration 8 weeks pain Impairment pt has pain 6/10 frequently Short Term Goal (STG) pt will have no more than 4/10 pain in a daily basis STG Duration 4weeks Fpc Goal (LTG) pt will have no more than 2/10 pain in a daily basis so pt can have more than 6 hours of sleep per day. LTG Duration 8 weeks oswestry Impairment pt scores 26 on Oswestry Short Term Goal (STG) pt will score <20 on Oswestry to improve his quality of life STG Duration 4 weeks Fpc Goal (LTG) pt will score <15 on Oswestry to improve his quality of life LTG Duration 8 weeks Assessment Summary Assessment Pt arrived 8/10 back and nerve pain into medial R thigh lasting 3rd day today. Pt responded well to manual, initiated pelvic realignment exercise assessment today then progressed into sciatic nerve glide on R and stretching, ROM to LS> TS with relief of pain down to 3-4/10. Pt demonstrated segmental LS/ pelvic movement with upright posture walking out today. Educated to continue to perform ther ex today at home for days of acute pain and improve ROM/ mobility. If having a good day progress with core strengthening HEP given in treatments with very understanding. Physical Therapy Plan Frequency and Duration Frequency of Treatment 2x/Week Duration of Treatment 8 weeks Plan of Care Start Date 09/27/20 Plan of Care End Date 11/26/20 Therapeutic Interventions Therapeutic Interventions Balance Training,Home Exercise Program,Joint Mobilizations, Manual Therapy,Neuromuscular Re-education,Patient/Caregiver Education,Self-Care/Home Management,Soft Tissue Mobilization,Taping, Therapeutic Activities, Therapeutic Exercises Modalities Cold Pack/Ice Massage,Electric Stimulation,Hot Packs, Infrared Therapy,Traction- Mechanical,Ultrasound Next Visit Focus/Plan Next Note Type Treatment Note Next Visit Plan Assess response to manual, flex/ ext/ lateral ther ex given in PT. Future txs: side plank endurance open book seated flexion
--- NOTE | 2020-10-19 12:30 | PT-OP ANOTE ---
Pt did not show for today's appt, called him and thought was at 1300 like most of his appts are. Confirmed next appt 10/21 at 1300.
--- NOTE | 2020-10-25 13:47 | PT.OTN ---
Current Diagnoses Low back pain (10/25/20) Physical Therapy Treatment Note PT-OP-A Visit Information Start: 09/27/20 16:16 Freq: Status: Active Protocol: Document 10/25/20 13:02 HH (Rec: 10/25/20 13:47 HH [email or web address]) Out-Patient Physical Therapy Visit Information Visit Information Visit Type Treatment Note Visit Start Time 13:02 Visit Stop Time 13:48 Total Visit Minutes 46 Visit Number 12/17 Number of COUNSELING PROGRAM LEADER Visits 0 PT-OP-B Current Condition Start: 09/27/20 16:16 Freq: Status: Active Protocol: Document 09/27/20 16:16 HH (Rec: 09/27/20 16:52 HH [email or web address]) Current Condition History of Current Condition Onset Date 4-6 months ago Current Complaints LBP, radiating pain and soreness to posterior thighs History of Current Condition pt is 25-year-old male presents to the clinic with ongoing lower back pain since 4-6 months ago without any injury. He was recently diagnosed with ankylosing spondylitis based on his HLA- B27 test but X-rays shows negative finding. Pt reports his back pain varies depends on the day. Worst at sleep and feels like his back is fused in the morning. Staying in one position also feels stiff to him but moving around tends to manage his pain. Pt has been wearing OTC back brace all the time to reduce his back pain as well. He noticed he cannot bend forward d/t stiffness and significant pain . 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 Prior Treatments and Tests 08/25/20 IMPRESSION: Unremarkable radiographic examination of lumbar spine. Personal Factors Other Personal Factors That May Effect bipolar disorder type 2 Therapy/Recovery depression PT-OP-C Subjective Start: 09/27/20 16:16 Freq: Status: Active Protocol: Document 10/25/20 13:02 HH (Rec: 10/25/20 13:47 HH [id number]) OP-PT Subjective Patient Comments Patient Comments last time i had a flare up and it lasted 2 days. Its been on and off for the past 2 weeks. PT-OP-D Balance Start: 09/27/20 16:16 Freq: Status: Active Protocol: Document 09/27/20 16:16 HH (Rec: 09/27/20 16:52 [email or web address]) Balance Tests Single Limb Standing Single Limb- Right WFL Single Limb- Left WFL PT-OP-E Functional Tests Start: 09/27/20 16:16 Freq: Status: Active Protocol: Document 10/04/20 12:58 HH (Rec: 10/04/20 13:47 [id number]) Functional Tests Other trunk extensor endurance test Comment extension= 74s trunk flexion test Comment flexion= 36s plank Name of Test side plank L, R Comment L= 31 s, R= 32s PT-OP-F Manual Assessment Start: 09/27/20 16:16 Freq: Status: Active Protocol: Document 09/27/20 16:16 HH (Rec: 09/27/20 16:52 [email or web address]) Manual Assessments Soft Tissue Assessment Soft Tissue Mobility Assessment mild hypertonicity at lumbar paraspinals bilaterally L>R PT-OP-H Neuro Start: 09/27/20 16:16 Freq: Status: Active Protocol: Document 09/27/20 16:16 HH (Rec: 09/27/20 16:52 [email or web address]) Sensation Evaluation Gross Sensation Gross Sensation WNL Deep Tendon Reflex & Clonus Assessment Deep Tendon Reflex Bilateral Achilles Deep Tendon Reflex 2+ Normal Bilateral Patellar Deep Tendon Reflex 2+ Normal PT-OP-J Posture/Palpation/Skin Start: 09/27/20 16:16 Freq: Status: Active Protocol: Document 09/27/20 16:16 HH (Rec: 09/27/20 16:52 [email or web address]) Posture Evaluation Position Standing T-Spine Posture Flattened L-Spine Posture Flattened,Decreased Lordosis Pelvis Posture Posterior Tilted Knee Posture (L) Genu Recurvatum,(R) Genu Recurvatum PT-OP-K Range of Motion Start: 09/27/20 16:16 Freq: Status: Active Protocol: Document 09/27/20 16:16 HH (Rec: 09/27/20 16:52 [email or web address]) Lumbar Spine Range of Motion Lumbar Spine Active Percentage Testing Position Standing ROM Limitations Soft Tissue Tightness,Pain Comments toe touch test= significant pain noted 14 inches from floor, lack of pelvic rotation and minimal lumbar segmental flexion noted. lateral flexion R= 15 inches lateral flexion L= 16 inches extension = WFL, shoulder pass heels Hip Goniometric Range of Motion Hip Right Active Hip ROM WFL Yes Straight Leg Raise 85 Left Active Hip ROM WFL Yes Straight Leg Raise 80 PT-OP-L Special Tests Start: 09/27/20 16:16 Freq: Status: Active Protocol: Document 09/27/20 16:16 (Rec: 09/27/20 16:52 [email or web address]) Special Tests Hip Special Tests Straight Leg Raise Test Results -ve Comments tightness noted at HS Scour Test Test Results -ve JET Test Results -ve PT-OP-M Strength Start: 09/27/20 16:16 Freq: Status: Active Protocol: Document 09/27/20 16:16 (Rec: 09/27/20 16:52 [email or web address]) Hip Strength Hip Manual Muscle Testing Right Flexion (L2) 4+ Good+ Extension (S1) 4+ Good+ Abduction 4+ Good+ Adduction 4+ Good+ External Rotation 4+ Good+ Internal Rotation 4+ Good+ Left Flexion (L2) 4 Good Extension (S1) 4+ Good+ Abduction 4+ Good+ Adduction 4+ Good+ External Rotation 4+ Good+ Internal Rotation 4+ Good+ Knee Strength Knee Manual Muscle Testing Right Flexion (S2) 5 Normal Extension (L3) 5 Normal Left Flexion (S2) 5 Normal Extension (L3) 5 Normal Ankle/Foot Strength Ankle and Foot Manual Muscle Testing Right Dorsiflexion (L4) 5 Normal Plantarflexion (S1) 5 Normal Left Dorsiflexion (L4) 5 Normal Plantarflexion (S1) 5 Normal PT-OP-Q Treatments Start: 09/27/20 16:16 Freq: Status: Active Protocol: Document 10/25/20 13:02 (Rec: 10/25/20 13:47 [id number]) Therapeutic Exercises Supine Exercises hamstrings stretch Side bilateral Reps/Minutes 15 sec hold x5 Prone Exercises child's pose Prone Exercise Name into thread needle today Reps/Minutes 20 sec x2 Comments little tighter on L under shld blade - good response to LS & TS range sandra cat camel Prone Exercise Name extension feels better than flexion- little improvement Side bilateral Reps/Minutes 8 x2 Comments cues on segmental control, pressure at L SIJ Sitting Exercises seated flexion Sitting Exercise Name floor touch Reps/Minutes 8 x2 Standing Exercises RDL Side bilateral Reps/Minutes 8 x2 Comments cues on neutral spine. deadlift Side bilateral Equipment Used PVC first then 2 10lbs DB Comments cues on neutral spine, plank Standing Exercise Name incline at 45 degrees. Side bilateral Reps/Minutes 30 sec x 5 jose curl Equipment Used AROM today due to LBP Reps/Minutes 8 x1 Comments cues on segmental flexion Manual Therapy Treatment Soft Tissue Mobilization QL Body Location R QL Mobilization Type Sustained Pressure,Trigger Point Release Intensity/Depth Deep Body Position Sidelying PT-OP-R Modalities Start: 09/27/20 16:16 Freq: Status: Active Protocol: Document 10/11/20 13:05 SP (Rec: 10/11/20 14:29 SP [id number]) Electric Stimulation Electric Stimulation IFC Body Location B LS Duration (Minutes) 8 Intensity 23 Target/Sweep Target Patient Position Sitting Combined With Heat/Cold Hot Pack Comments good tolerance/beneficial PT-OP-T Assessment and Plan Start: 09/27/20 16:16 Freq: Status: Active Protocol: Document 10/25/20 13:02 HH (Rec: 10/25/20 13:47 HH [id number]) Physical Therapy Assessment Goals HEP Impairment pt does not have a HEP Short Term Goal (STG) pt will be compliant to complete HEP safely and independently to improve his overall lumbar mobility and strength STG Duration 8 weeks activity tolerance Impairment pt cannot sit >30 mins, and needed to wear back brace Short Term Goal (STG) pt will be able to sit >30 mins without increase of back pain and able to wean off from using back brace to only at work. STG Duration 4 weeks Machine Icer Goal (LTG) pt will be able to sit >1 hour without increase of back pain and able to completely wean off from wearing back brace LTG Duration 8 weeks pain Impairment pt has pain 6/10 frequently Short Term Goal (STG) pt will have no more than 4/10 pain in a daily basis STG Duration 4weeks Machine Icer Goal (LTG) pt will have no more than 2/10 pain in a daily basis so pt can have more than 6 hours of sleep per day. LTG Duration 8 weeks oswestry Impairment pt scores 26 on Oswestry Short Term Goal (STG) pt will score <20 on Oswestry to improve his quality of life STG Duration 4 weeks Machine Icer Goal (LTG) pt will score <15 on Oswestry to improve his quality of life LTG Duration 8 weeks Assessment Summary Assessment Pt reports he can see overall improvements on how to manage his symptoms. Also recommended him to try stretching before he sleeps to address his morning stiffness. Progress to back strengthening today including deadlift, RDL, and plank and pt did not c/o any discomfort. Might update his HEP next week. Physical Therapy Plan Frequency and Duration Frequency of Treatment 2x/Week Duration of Treatment 8 weeks Plan of Care Start Date 09/27/20 Plan of Care End Date 11/26/20 Therapeutic Interventions Therapeutic Interventions Balance Training,Home Exercise Program,Joint Mobilizations, Manual Therapy,Neuromuscular Re-education,Patient/Caregiver Education,Self-Care/Home Management,Soft Tissue Mobilization,Taping, Therapeutic Activities, Therapeutic Exercises Modalities Cold Pack/Ice Massage,Electric Stimulation,Hot Packs, Infrared Therapy,Traction- Mechanical,Ultrasound Next Visit Focus/Plan Next Note Type Treatment Note Next Visit Plan Assess response to manual, flex/ ext/ lateral ther ex given in PT. Future txs: side plank endurance open book seated flexion
--- NOTE | 2020-10-28 13:48 | PT.OTN ---
Current Diagnoses Low back pain (10/28/20) Physical Therapy Treatment Note PT-OP-A Visit Information Start: 09/27/20 16:16 Freq: Status: Active Protocol: Document 10/28/20 13:10 SP (Rec: 10/28/20 13:52 SP [id number]) Out-Patient Physical Therapy Visit Information Visit Information Visit Type Treatment Note Visit Start Time 13:10 Visit Stop Time 13:48 Total Visit Minutes 38 Visit Number 01/16 Number of RESEARCH PROFESSOR Visits 1 Evaluation Information Evaluation Date 09/27/20 PT-OP-B Current Condition Start: 09/27/20 16:16 Freq: Status: Active Protocol: Document 09/27/20 16:16 HH (Rec: 09/27/20 16:52 HH [email or web address]) Current Condition History of Current Condition Onset Date 4-6 months ago Current Complaints LBP, radiating pain and soreness to posterior thighs History of Current Condition pt is 25-year-old male presents to the clinic with ongoing lower back pain since 4-6 months ago without any injury. He was recently diagnosed with ankylosing spondylitis based on his HLA- B27 test but X-rays shows negative finding. Pt reports his back pain varies depends on the day. Worst at sleep and feels like his back is fused in the morning. Staying in one position also feels stiff to him but moving around tends to manage his pain. Pt has been wearing OTC back brace all the time to reduce his back pain as well. He noticed he cannot bend forward d/t stiffness and significant pain . 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 Prior Treatments and Tests 08/25/20 IMPRESSION: Unremarkable radiographic examination of lumbar spine. Personal Factors Other Personal Factors That May Effect bipolar disorder type 2 Therapy/Recovery depression PT-OP-C Subjective Start: 09/27/20 16:16 Freq: Status: Active Protocol: Document 10/28/20 13:10 SP (Rec: 10/28/20 13:52 SP [id number]) OP-PT Subjective Patient Comments Patient Comments R HS still sore from last tx work but in a good way. Pt stated LB tightness upon arrival. Patient Reported Progress Improving PT-OP-D Balance Start: 09/27/20 16:16 Freq: Status: Active Protocol: Document 09/27/20 16:16 HH (Rec: 09/27/20 16:52 [email or web address]) Balance Tests Single Limb Standing Single Limb- Right WFL Single Limb- Left WFL PT-OP-E Functional Tests Start: 09/27/20 16:16 Freq: Status: Active Protocol: Document 10/04/20 12:58 HH (Rec: 10/04/20 13:47 HH [id number]) Functional Tests Other trunk extensor endurance test Comment extension= 74s trunk flexion test Comment flexion= 36s plank Name of Test side plank L, R Comment L= 31 s, R= 32s PT-OP-F Manual Assessment Start: 09/27/20 16:16 Freq: Status: Active Protocol: Document 09/27/20 16:16 HH (Rec: 09/27/20 16:52 [email or web address]) Manual Assessments Soft Tissue Assessment Soft Tissue Mobility Assessment mild hypertonicity at lumbar paraspinals bilaterally L>R PT-OP-H Neuro Start: 09/27/20 16:16 Freq: Status: Active Protocol: Document 09/27/20 16:16 HH (Rec: 09/27/20 16:52 [email or web address]) Sensation Evaluation Gross Sensation Gross Sensation WNL Deep Tendon Reflex & Clonus Assessment Deep Tendon Reflex Bilateral Achilles Deep Tendon Reflex 2+ Normal Bilateral Patellar Deep Tendon Reflex 2+ Normal PT-OP-J Posture/Palpation/Skin Start: 09/27/20 16:16 Freq: Status: Active Protocol: Document 09/27/20 16:16 HH (Rec: 09/27/20 16:52 [email or web address]) Posture Evaluation Position Standing T-Spine Posture Flattened L-Spine Posture Flattened,Decreased Lordosis Pelvis Posture Posterior Tilted Knee Posture (L) Genu Recurvatum,(R) Genu Recurvatum PT-OP-K Range of Motion Start: 09/27/20 16:16 Freq: Status: Active Protocol: Document 09/27/20 16:16 HH (Rec: 09/27/20 16:52 [email or web address]) Lumbar Spine Range of Motion Lumbar Spine Active Percentage Testing Position Standing ROM Limitations Soft Tissue Tightness,Pain Comments toe touch test= significant pain noted 14 inches from floor, lack of pelvic rotation and minimal lumbar segmental flexion noted. lateral flexion R= 15 inches lateral flexion L= 16 inches extension = WFL, shoulder pass heels Hip Goniometric Range of Motion Hip Right Active Hip ROM WFL Yes Straight Leg Raise 85 Left Active Hip ROM WFL Yes Straight Leg Raise 80 PT-OP-L Special Tests Start: 09/27/20 16:16 Freq: Status: Active Protocol: Document 09/27/20 16:16 HH (Rec: 09/27/20 16:52 HH [email or web address]) Special Tests Hip Special Tests Straight Leg Raise Test Results -ve Comments tightness noted at HS Scour Test Test Results -ve JET Test Results -ve PT-OP-M Strength Start: 09/27/20 16:16 Freq: Status: Active Protocol: Document 09/27/20 16:16 HH (Rec: 09/27/20 16:52 HH [email or web address]) Hip Strength Hip Manual Muscle Testing Right Flexion (L2) 4+ Good+ Extension (S1) 4+ Good+ Abduction 4+ Good+ Adduction 4+ Good+ External Rotation 4+ Good+ Internal Rotation 4+ Good+ Left Flexion (L2) 4 Good Extension (S1) 4+ Good+ Abduction 4+ Good+ Adduction 4+ Good+ External Rotation 4+ Good+ Internal Rotation 4+ Good+ Knee Strength Knee Manual Muscle Testing Right Flexion (S2) 5 Normal Extension (L3) 5 Normal Left Flexion (S2) 5 Normal Extension (L3) 5 Normal Ankle/Foot Strength Ankle and Foot Manual Muscle Testing Right Dorsiflexion (L4) 5 Normal Plantarflexion (S1) 5 Normal Left Dorsiflexion (L4) 5 Normal Plantarflexion (S1) 5 Normal PT-OP-Q Treatments Start: 09/27/20 16:16 Freq: Status: Active Protocol: Document 10/28/20 13:10 SP (Rec: 10/28/20 13:52 SP [id number]) Therapeutic Exercises Supine Exercises hamstrings stretch Side right Reps/Minutes 15 sec hold x5 Prone Exercises prone on hands Prone Exercise Name LS ext Reps/Minutes 5 sec hold x5 Comments good stretch response child's pose Prone Exercise Name into thread needle today Reps/Minutes 20 sec x2 Comments little tighter on L under shld blade - good response to LS & TS range sandra cat camel Prone Exercise Name extension feels better than flexion Side bilateral Reps/Minutes 8 x2 Comments cues on segmental control, pressure at L upper LS Sitting Exercises seated flexion Sitting Exercise Name reach under chair Reps/Minutes x8 reps 5 sec hold Comments good stretch Standing Exercises side plank Side bilateral Reps/Minutes 30 x2 table on elbow, long legs Comments cued serratus press form RDL Standing Exercise Name single leg, cross body Side bilateral Equipment Used AROM to 10#DB stand height Reps/Minutes 8 x2 Comments cued COG over shoe laces, improved level pelvis(more chall L) deadlift Side bilateral Equipment Used PVC first then 2- 10lbs DB Reps/Minutes x10 Comments cues on neutral CS/ TS/ LS plank Standing Exercise Name slight serratus pull Side bilateral Equipment Used incline at 45 degrees off side table Reps/Minutes 60 sec x 3 Comments improved form, good results jose curl Equipment Used AROM back to wall, dowel Reps/Minutes x5 Comments cues on segmental flexion PT-OP-R Modalities Start: 09/27/20 16:16 Freq: Status: Active Protocol: Document 10/11/20 13:05 SP (Rec: 10/11/20 14:29 SP [id number]) Electric Stimulation Electric Stimulation IFC Body Location B LS Duration (Minutes) 8 Intensity 23 Target/Sweep Target Patient Position Sitting Combined With Heat/Cold Hot Pack Comments good tolerance/beneficial PT-OP-T Assessment and Plan Start: 09/27/20 16:16 Freq: Status: Active Protocol: Document 10/28/20 13:10 SP (Rec: 10/28/20 13:52 SP [id number]) Physical Therapy Assessment Goals HEP Impairment pt does not have a HEP Short Term Goal (STG) pt will be compliant to complete HEP safely and independently to improve his overall lumbar mobility and strength STG Duration 8 weeks activity tolerance Impairment pt cannot sit >30 mins, and needed to wear back brace Short Term Goal (STG) pt will be able to sit >30 mins without increase of back pain and able to wean off from using back brace to only at work. STG Duration 4 weeks Jail Goal (LTG) pt will be able to sit >1 hour without increase of back pain and able to completely wean off from wearing back brace LTG Duration 8 weeks pain Impairment pt has pain 6/10 frequently Short Term Goal (STG) pt will have no more than 4/10 pain in a daily basis STG Duration 4weeks Systems Protection Technician Goal (LTG) pt will have no more than 2/10 pain in a daily basis so pt can have more than 6 hours of sleep per day. LTG Duration 8 weeks oswestry Impairment pt scores 26 on Oswestry Short Term Goal (STG) pt will score <20 on Oswestry to improve his quality of life STG Duration 4 weeks Systems Protection Technician Goal (LTG) pt will score <15 on Oswestry to improve his quality of life LTG Duration 8 weeks Assessment Summary Assessment Pt improved in form during strengthening in standing today, good core faciltation. Pt improved with AROM LS with good stretch. Improved with plank today 60 sec incline forward, 30 flat on table. Physical Therapy Plan Frequency and Duration Frequency of Treatment 2x/Week Duration of Treatment 8 weeks Plan of Care Start Date 09/27/20 Plan of Care End Date 11/26/20 Therapeutic Interventions Therapeutic Interventions Balance Training,Home Exercise Program,Joint Mobilizations, Manual Therapy,Neuromuscular Re-education,Patient/Caregiver Education,Self-Care/Home Management,Soft Tissue Mobilization,Taping, Therapeutic Activities, Therapeutic Exercises Modalities Cold Pack/Ice Massage,Electric Stimulation,Hot Packs, Infrared Therapy,Traction- Mechanical,Ultrasound Next Visit Focus/Plan Next Note Type Treatment Note Next Visit Plan Assess response to standing strengthening, planks review. continue Future txs: side plank endurance open book seated flexion
--- NOTE | 2020-11-04 13:45 | PT.OTN ---
Current Diagnoses Low back pain (11/04/20) Physical Therapy Treatment Note PT-OP-A Visit Information Start: 09/27/20 16:16 Freq: Status: Active Protocol: Document 11/04/20 13:04 SP (Rec: 11/04/20 13:46 SP [id number]) Out-Patient Physical Therapy Visit Information Visit Information Visit Type Treatment Note Visit Note ankylosis spondylitis Visit Start Time 13:04 Visit Stop Time 13:45 Total Visit Minutes 41 Visit Number 8 Number of ENVIRONMENTAL COMPLIANCE ENGINEER Visits 2 Evaluation Information Evaluation Date 09/27/20 Precautions Precautions Awareness of Dx: Ankylosis Spondylitis PT-OP-B Current Condition Start: 09/27/20 16:16 Freq: Status: Active Protocol: Document 09/27/20 16:16 HH (Rec: 09/27/20 16:52 HH [email or web address]) Current Condition History of Current Condition Onset Date 4-6 months ago Current Complaints LBP, radiating pain and soreness to posterior thighs History of Current Condition pt is 25-year-old male presents to the clinic with ongoing lower back pain since 4-6 months ago without any injury. He was recently diagnosed with ankylosing spondylitis based on his HLA- B27 test but X-rays shows negative finding. Pt reports his back pain varies depends on the day. Worst at sleep and feels like his back is fused in the morning. Staying in one position also feels stiff to him but moving around tends to manage his pain. Pt has been wearing OTC back brace all the time to reduce his back pain as well. He noticed he cannot bend forward d/t stiffness and significant pain . 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 Prior Treatments and Tests 08/25/20 IMPRESSION: Unremarkable radiographic examination of lumbar spine. Personal Factors Other Personal Factors That May Effect bipolar disorder type 2 Therapy/Recovery depression PT-OP-C Subjective Start: 09/27/20 16:16 Freq: Status: Active Protocol: Document 11/04/20 13:04 SP (Rec: 11/04/20 13:46 SP [id number]) OP-PT Subjective Patient Comments Patient Comments Pt stated my pain was pretty rough past 2 days but today is the first day of doing well 2 /10. Reported bad day is 4-5/ 10 but when doing stretch and exercises helps to decrease back to 2/10, more move better feel even at work. PT-OP-D Balance Start: 09/27/20 16:16 Freq: Status: Active Protocol: Document 09/27/20 16:16 HH (Rec: 09/27/20 16:52 [email or web address]) Balance Tests Single Limb Standing Single Limb- Right WFL Single Limb- Left WFL PT-OP-E Functional Tests Start: 09/27/20 16:16 Freq: Status: Active Protocol: Document 10/04/20 12:58 HH (Rec: 10/04/20 13:47 HH [id number]) Functional Tests Other trunk extensor endurance test Comment extension= 74s trunk flexion test Comment flexion= 36s plank Name of Test side plank L, R Comment L= 31 s, R= 32s PT-OP-F Manual Assessment Start: 09/27/20 16:16 Freq: Status: Active Protocol: Document 09/27/20 16:16 HH (Rec: 09/27/20 16:52 [email or web address]) Manual Assessments Soft Tissue Assessment Soft Tissue Mobility Assessment mild hypertonicity at lumbar paraspinals bilaterally L>R PT-OP-H Neuro Start: 09/27/20 16:16 Freq: Status: Active Protocol: Document 09/27/20 16:16 HH (Rec: 09/27/20 16:52 [email or web address]) Sensation Evaluation Gross Sensation Gross Sensation WNL Deep Tendon Reflex & Clonus Assessment Deep Tendon Reflex Bilateral Achilles Deep Tendon Reflex 2+ Normal Bilateral Patellar Deep Tendon Reflex 2+ Normal PT-OP-J Posture/Palpation/Skin Start: 09/27/20 16:16 Freq: Status: Active Protocol: Document 09/27/20 16:16 HH (Rec: 09/27/20 16:52 [email or web address]) Posture Evaluation Position Standing T-Spine Posture Flattened L-Spine Posture Flattened,Decreased Lordosis Pelvis Posture Posterior Tilted Knee Posture (L) Genu Recurvatum,(R) Genu Recurvatum PT-OP-K Range of Motion Start: 09/27/20 16:16 Freq: Status: Active Protocol: Document 09/27/20 16:16 HH (Rec: 09/27/20 16:52 [email or web address]) Lumbar Spine Range of Motion Lumbar Spine Active Percentage Testing Position Standing ROM Limitations Soft Tissue Tightness,Pain Comments toe touch test= significant pain noted 14 inches from floor, lack of pelvic rotation and minimal lumbar segmental flexion noted. lateral flexion R= 15 inches lateral flexion L= 16 inches extension = WFL, shoulder pass heels Hip Goniometric Range of Motion Hip Right Active Hip ROM WFL Yes Straight Leg Raise 85 Left Active Hip ROM WFL Yes Straight Leg Raise 80 PT-OP-L Special Tests Start: 09/27/20 16:16 Freq: Status: Active Protocol: Document 09/27/20 16:16 HH (Rec: 09/27/20 16:52 HH [email or web address]) Special Tests Hip Special Tests Straight Leg Raise Test Results -ve Comments tightness noted at HS Scour Test Test Results -ve JET Test Results -ve PT-OP-M Strength Start: 09/27/20 16:16 Freq: Status: Active Protocol: Document 09/27/20 16:16 HH (Rec: 09/27/20 16:52 HH [email or web address]) Hip Strength Hip Manual Muscle Testing Right Flexion (L2) 4+ Good+ Extension (S1) 4+ Good+ Abduction 4+ Good+ Adduction 4+ Good+ External Rotation 4+ Good+ Internal Rotation 4+ Good+ Left Flexion (L2) 4 Good Extension (S1) 4+ Good+ Abduction 4+ Good+ Adduction 4+ Good+ External Rotation 4+ Good+ Internal Rotation 4+ Good+ Knee Strength Knee Manual Muscle Testing Right Flexion (S2) 5 Normal Extension (L3) 5 Normal Left Flexion (S2) 5 Normal Extension (L3) 5 Normal Ankle/Foot Strength Ankle and Foot Manual Muscle Testing Right Dorsiflexion (L4) 5 Normal Plantarflexion (S1) 5 Normal Left Dorsiflexion (L4) 5 Normal Plantarflexion (S1) 5 Normal PT-OP-Q Treatments Start: 09/27/20 16:16 Freq: Status: Active Protocol: Document 11/04/20 13:04 SP (Rec: 11/04/20 13:46 SP [id number]) Therapeutic Exercises Supine Exercises LTR Side bilateral Resistance AROM stretch Reps/Minutes 15 sec x4 eugene stretch Side bilateral Reps/Minutes 30 x2 Prone Exercises back extension plank Prone Exercise Name lower body anchored on table Reps/Minutes 60 sec. Comments hips on table, upper body off hold bird dog Side bilateral Reps/Minutes 2x5 Comments UE/LE ext contact table, cued neutral pelvis prone on hands Comments good stretch response cat camel Prone Exercise Name extension feels better than flexion Side bilateral Reps/Minutes 8 x2 Comments cues on segmental control, pressure at L upper LS Sidelying Exercises open book Side bilateral Reps/Minutes x5 Comments end tx rotational dynamic stretching Sitting Exercises seated flexion Sitting Exercise Name reach under chair Reps/Minutes x5 reps 5 sec hold Comments good stretch between lift and RDL Standing Exercises side plank Standing Exercise Name Sidelying lift on table Side bilateral Equipment Used legs extended Reps/Minutes 35, 46 L; 40, 1' 3 R Comments cued serratus press form RDL Standing Exercise Name single leg, cross body Side bilateral Equipment Used AROM to standing 10#DB Reps/Minutes 8 x2 Comments cued forward hip/ knee alignment, improved level pelvis, soft knee deadlift Side bilateral Equipment Used 2- 10lbs DB Reps/Minutes x20 Comments cues on neutral CS/ TS/ LS, soft knee hip hinge plank Standing Exercise Name slight serratus pull Side bilateral Equipment Used incline at 45 degrees off side table Reps/Minutes 60 sec x 3 Comments improved form, good results jose curl Equipment Used AROM back to wall, dowel Reps/Minutes x5 Comments cues on segmental flexion PT-OP-R Modalities Start: 09/27/20 16:16 Freq: Status: Active Protocol: Document 10/11/20 13:05 SP (Rec: 10/11/20 14:29 SP [id number]) Electric Stimulation Electric Stimulation IFC Body Location B LS Duration (Minutes) 8 Intensity 23 Target/Sweep Target Patient Position Sitting Combined With Heat/Cold Hot Pack Comments good tolerance/beneficial PT-OP-T Assessment and Plan Start: 09/27/20 16:16 Freq: Status: Active Protocol: Document 11/04/20 13:04 SP (Rec: 11/04/20 13:46 SP [id number]) Physical Therapy Assessment Goals HEP Impairment pt does not have a HEP Short Term Goal (STG) pt will be compliant to complete HEP safely and independently to improve his overall lumbar mobility and strength STG Duration 8 weeks activity tolerance Impairment pt cannot sit >30 mins, and needed to wear back brace Short Term Goal (STG) pt will be able to sit >30 mins without increase of back pain and able to wean off from using back brace to only at work. STG Duration 4 weeks Shelter Goal (LTG) pt will be able to sit >1 hour without increase of back pain and able to completely wean off from wearing back brace LTG Duration 8 weeks pain Impairment pt has pain 6/10 frequently Short Term Goal (STG) pt will have no more than 4/10 pain in a daily basis STG Duration 4weeks Veterinary Virus Serum Inspector Goal (LTG) pt will have no more than 2/10 pain in a daily basis so pt can have more than 6 hours of sleep per day. LTG Duration 8 weeks oswestry Impairment pt scores 26 on Oswestry Short Term Goal (STG) pt will score <20 on Oswestry to improve his quality of life STG Duration 4 weeks Veterinary Virus Serum Inspector Goal (LTG) pt will score <15 on Oswestry to improve his quality of life LTG Duration 8 weeks Assessment Summary Assessment Pt responded well to stretching, and standing active functional strengthening. Initiated eugene stretch great response felt good and LTRs today for rotational ROm with reported discomfort 3/10 but felt was a good movement to warm up in morning. I feel even more loosened up now, end tx. Physical Therapy Plan Frequency and Duration Frequency of Treatment 2x/Week Duration of Treatment 8 weeks Plan of Care Start Date 09/27/20 Plan of Care End Date 11/26/20 Therapeutic Interventions Therapeutic Interventions Balance Training,Home Exercise Program,Joint Mobilizations, Manual Therapy,Neuromuscular Re-education,Patient/Caregiver Education,Self-Care/Home Management,Soft Tissue Mobilization,Taping, Therapeutic Activities, Therapeutic Exercises Modalities Cold Pack/Ice Massage,Electric Stimulation,Hot Packs, Infrared Therapy,Traction- Mechanical,Ultrasound Next Visit Focus/Plan Next Note Type Treatment Note Next Visit Plan Assess response to standing strengthening, froward, side planks endurance, ROM flexibility. continue Future txs: side plank endurance open book seated flexion
--- NOTE | 2020-11-08 13:48 | PT.OTN ---
Current Diagnoses Low back pain (11/08/20) Physical Therapy Treatment Note PT-OP-A Visit Information Start: 09/27/20 16:16 Freq: Status: Active Protocol: Document 11/08/20 13:02 (Rec: 11/08/20 13:48 [id number]) Out-Patient Physical Therapy Visit Information Visit Information Visit Type Treatment Note Visit Note ankylosis spondylitis Visit Start Time 13:04 Visit Stop Time 13:45 Total Visit Minutes 41 Visit Number 03/19 Number of [employer]AURANT GREETER Visits 0 PT-OP-B Current Condition Start: 09/27/20 16:16 Freq: Status: Active Protocol: Document 09/27/20 16:16 (Rec: 09/27/20 16:52 [email or web address]) Current Condition History of Current Condition Onset Date 4-6 months ago Current Complaints LBP, radiating pain and soreness to posterior thighs History of Current Condition pt is 25-year-old male presents to the clinic with ongoing lower back pain since 4-6 months ago without any injury. He was recently diagnosed with ankylosing spondylitis based on his HLA- B27 test but X-rays shows negative finding. Pt reports his back pain varies depends on the day. Worst at sleep and feels like his back is fused in the morning. Staying in one position also feels stiff to him but moving around tends to manage his pain. Pt has been wearing OTC back brace all the time to reduce his back pain as well. He noticed he cannot bend forward d/t stiffness and significant pain . 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 Prior Treatments and Tests 08/25/20 IMPRESSION: Unremarkable radiographic examination of lumbar spine. Personal Factors Other Personal Factors That May Effect bipolar disorder type 2 Therapy/Recovery depression PT-OP-C Subjective Start: 09/27/20 16:16 Freq: Status: Active Protocol: Document 11/08/20 13:02 (Rec: 11/08/20 13:48 [id number]) OP-PT Subjective Patient Comments Patient Comments Im feeling pretty good today. I havent called as many days off as before since i started therapy. I am more able to manage my symptoms now. Patient Reported Progress Improving PT-OP-D Balance Start: 09/27/20 16:16 Freq: Status: Active Protocol: Document 09/27/20 16:16 HH (Rec: 09/27/20 16:52 [email or web address]) Balance Tests Single Limb Standing Single Limb- Right WFL Single Limb- Left WFL PT-OP-E Functional Tests Start: 09/27/20 16:16 Freq: Status: Active Protocol: Document 10/04/20 12:58 HH (Rec: 10/04/20 13:47 HH [id number]) Functional Tests Other trunk extensor endurance test Comment extension= 74s trunk flexion test Comment flexion= 36s plank Name of Test side plank L, R Comment L= 31 s, R= 32s PT-OP-F Manual Assessment Start: 09/27/20 16:16 Freq: Status: Active Protocol: Document 09/27/20 16:16 HH (Rec: 09/27/20 16:52 [email or web address]) Manual Assessments Soft Tissue Assessment Soft Tissue Mobility Assessment mild hypertonicity at lumbar paraspinals bilaterally L>R PT-OP-H Neuro Start: 09/27/20 16:16 Freq: Status: Active Protocol: Document 09/27/20 16:16 HH (Rec: 09/27/20 16:52 [email or web address]) Sensation Evaluation Gross Sensation Gross Sensation WNL Deep Tendon Reflex & Clonus Assessment Deep Tendon Reflex Bilateral Achilles Deep Tendon Reflex 2+ Normal Bilateral Patellar Deep Tendon Reflex 2+ Normal PT-OP-J Posture/Palpation/Skin Start: 09/27/20 16:16 Freq: Status: Active Protocol: Document 09/27/20 16:16 HH (Rec: 09/27/20 16:52 [email or web address]) Posture Evaluation Position Standing T-Spine Posture Flattened L-Spine Posture Flattened,Decreased Lordosis Pelvis Posture Posterior Tilted Knee Posture (L) Genu Recurvatum,(R) Genu Recurvatum PT-OP-K Range of Motion Start: 09/27/20 16:16 Freq: Status: Active Protocol: Document 09/27/20 16:16 HH (Rec: 09/27/20 16:52 [email or web address]) Lumbar Spine Range of Motion Lumbar Spine Active Percentage Testing Position Standing ROM Limitations Soft Tissue Tightness,Pain Comments toe touch test= significant pain noted 14 inches from floor, lack of pelvic rotation and minimal lumbar segmental flexion noted. lateral flexion R= 15 inches lateral flexion L= 16 inches extension = WFL, shoulder pass heels Hip Goniometric Range of Motion Hip Right Active Hip ROM WFL Yes Straight Leg Raise 85 Left Active Hip ROM WFL Yes Straight Leg Raise 80 PT-OP-L Special Tests Start: 09/27/20 16:16 Freq: Status: Active Protocol: Document 09/27/20 16:16 (Rec: 09/27/20 16:52 [email or web address]) Special Tests Hip Special Tests Straight Leg Raise Test Results -ve Comments tightness noted at HS Scour Test Test Results -ve JET Test Results -ve PT-OP-M Strength Start: 09/27/20 16:16 Freq: Status: Active Protocol: Document 09/27/20 16:16 (Rec: 09/27/20 16:52 [email or web address]) Hip Strength Hip Manual Muscle Testing Right Flexion (L2) 4+ Good+ Extension (S1) 4+ Good+ Abduction 4+ Good+ Adduction 4+ Good+ External Rotation 4+ Good+ Internal Rotation 4+ Good+ Left Flexion (L2) 4 Good Extension (S1) 4+ Good+ Abduction 4+ Good+ Adduction 4+ Good+ External Rotation 4+ Good+ Internal Rotation 4+ Good+ Knee Strength Knee Manual Muscle Testing Right Flexion (S2) 5 Normal Extension (L3) 5 Normal Left Flexion (S2) 5 Normal Extension (L3) 5 Normal Ankle/Foot Strength Ankle and Foot Manual Muscle Testing Right Dorsiflexion (L4) 5 Normal Plantarflexion (S1) 5 Normal Left Dorsiflexion (L4) 5 Normal Plantarflexion (S1) 5 Normal PT-OP-Q Treatments Start: 09/27/20 16:16 Freq: Status: Active Protocol: Document 11/08/20 13:02 (Rec: 11/08/20 13:48 [id number]) Therapeutic Exercises Prone Exercises bird dog Side bilateral Reps/Minutes 2x5 Comments UE/LE ext contact table, cued neutral pelvis cat camel Prone Exercise Name extension feels better than flexion Side bilateral Reps/Minutes 10 Comments cues on segmental control, pressure at L upper LS Sidelying Exercises open book Sidelying Exercise Name with 1 LE off table, and UE press against it Side bilateral Reps/Minutes x5 Comments end tx rotational dynamic stretching Standing Exercises bend over row Side bilateral Equipment Used 5lbs DB x 2 Reps/Minutes 10 x2 open book at lunge Standing Exercise Name against wall Side bilateral RDL Standing Exercise Name bilateral, HS focused Side bilateral Equipment Used AROM to standing 10#DB Reps/Minutes 8 x2 Comments cued forward hip/ knee alignment, improved level pelvis, soft knee deadlift Side bilateral Equipment Used 10lbs DB Reps/Minutes x20 Comments cues on neutral CS/ TS/ LS, soft knee hip hinge jose curl Equipment Used AROM back to wall,5 lbs DB x2 Reps/Minutes 8 x2 Comments cues on segmental flexion Manual Therapy Treatment Soft Tissue Mobilization QL Body Location B QL Mobilization Type Sustained Pressure,Trigger Point Release Intensity/Depth Deep Body Position Sidelying Paraspinals Body Location Bilateral Mobilization Type Sustained Pressure,Trigger Point Release Intensity/Depth Deep Body Position Prone Comments less discomfort noted . PT-OP-R Modalities Start: 09/27/20 16:16 Freq: Status: Active Protocol: Document 10/11/20 13:05 SP (Rec: 10/11/20 14:29 SP [id number]) Electric Stimulation Electric Stimulation IFC Body Location B LS Duration (Minutes) 8 Intensity 23 Target/Sweep Target Patient Position Sitting Combined With Heat/Cold Hot Pack Comments good tolerance/beneficial PT-OP-T Assessment and Plan Start: 09/27/20 16:16 Freq: Status: Active Protocol: Document 11/08/20 13:02 HH (Rec: 11/08/20 13:48 HH [id number]) Physical Therapy Assessment Goals HEP Impairment pt does not have a HEP Short Term Goal (STG) pt will be compliant to complete HEP safely and independently to improve his overall lumbar mobility and strength STG Duration 8 weeks activity tolerance Impairment pt cannot sit >30 mins, and needed to wear back brace Short Term Goal (STG) pt will be able to sit >30 mins without increase of back pain and able to wean off from using back brace to only at work. STG Duration 4 weeks Molding Room Supervisor Goal (LTG) pt will be able to sit >1 hour without increase of back pain and able to completely wean off from wearing back brace LTG Duration 8 weeks pain Impairment pt has pain 6/10 frequently Short Term Goal (STG) pt will have no more than 4/10 pain in a daily basis STG Duration 4weeks Molding Room Supervisor Goal (LTG) pt will have no more than 2/10 pain in a daily basis so pt can have more than 6 hours of sleep per day. LTG Duration 8 weeks oswestry Impairment pt scores 26 on Oswestry Short Term Goal (STG) pt will score <20 on Oswestry to improve his quality of life STG Duration 4 weeks Molding Room Supervisor Goal (LTG) pt will score <15 on Oswestry to improve his quality of life LTG Duration 8 weeks Assessment Summary Assessment pt reports he has better management with his symptoms now and able to call less sick days since therapy started. Will add core strengthening ex to his HEP next visit. Physical Therapy Plan Frequency and Duration Frequency of Treatment 2x/Week Duration of Treatment 8 weeks Plan of Care Start Date 09/27/20 Plan of Care End Date 11/26/20 Therapeutic Interventions Therapeutic Interventions Balance Training,Home Exercise Program,Joint Mobilizations, Manual Therapy,Neuromuscular Re-education,Patient/Caregiver Education,Self-Care/Home Management,Soft Tissue Mobilization,Taping, Therapeutic Activities, Therapeutic Exercises Modalities Cold Pack/Ice Massage,Electric Stimulation,Hot Packs, Infrared Therapy,Traction- Mechanical,Ultrasound Next Visit Focus/Plan Next Note Type Treatment Note Next Visit Plan Assess response to standing strengthening, froward, side planks endurance, ROM flexibility. continue Future txs: side plank endurance open book seated flexion
--- NOTE | 2020-11-15 13:55 | PT.OTN ---
Current Diagnoses Low back pain (11/15/20) Physical Therapy Treatment Note PT-OP-A Visit Information Start: 09/27/20 16:16 Freq: Status: Active Protocol: Document 11/15/20 12:58 (Rec: 11/15/20 13:55 [id number]) Out-Patient Physical Therapy Visit Information Visit Information Visit Type Treatment Note Visit Note ankylosis spondylitis pt admitted to ER on 11/11 d/t severe back pain. Was given prenisone and hydrocodone. Visit Start Time 13:00 Visit Stop Time 13:45 Total Visit Minutes 45 Visit Number 04/18 Number of WINERY CELLAR HAND Visits 0 PT-OP-B Current Condition Start: 09/27/20 16:16 Freq: Status: Active Protocol: Document 09/27/20 16:16 HH (Rec: 09/27/20 16:52 HH [email or web address]) Current Condition History of Current Condition Onset Date 4-6 months ago Current Complaints LBP, radiating pain and soreness to posterior thighs History of Current Condition pt is 25-year-old male presents to the clinic with ongoing lower back pain since 4-6 months ago without any injury. He was recently diagnosed with ankylosing spondylitis based on his HLA- B27 test but X-rays shows negative finding. Pt reports his back pain varies depends on the day. Worst at sleep and feels like his back is fused in the morning. Staying in one position also feels stiff to him but moving around tends to manage his pain. Pt has been wearing OTC back brace all the time to reduce his back pain as well. He noticed he cannot bend forward d/t stiffness and significant pain . 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 Prior Treatments and Tests 08/25/20 IMPRESSION: Unremarkable radiographic examination of lumbar spine. Personal Factors Other Personal Factors That May Effect bipolar disorder type 2 Therapy/Recovery depression PT-OP-C Subjective Start: 09/27/20 16:16 Freq: Status: Active Protocol: Document 11/15/20 12:58 HH (Rec: 11/15/20 13:55 [id number]) OP-PT Subjective Patient Comments Patient Comments I woke up on and my pain went all the way up to my midback and it was so painful that i had to go to ER. They prescribed me hydrocodone and prenisone but i didnt take hydrocodone. I feel fine from my last visit. Patient Reported Progress Improving PT-OP-D Balance Start: 09/27/20 16:16 Freq: Status: Active Protocol: Document 09/27/20 16:16 HH (Rec: 09/27/20 16:52 [email or web address]) Balance Tests Single Limb Standing Single Limb- Right WFL Single Limb- Left WFL PT-OP-E Functional Tests Start: 09/27/20 16:16 Freq: Status: Active Protocol: Document 10/04/20 12:58 HH (Rec: 10/04/20 13:47 HH [id number]) Functional Tests Other trunk extensor endurance test Comment extension= 74s trunk flexion test Comment flexion= 36s plank Name of Test side plank L, R Comment L= 31 s, R= 32s PT-OP-F Manual Assessment Start: 09/27/20 16:16 Freq: Status: Active Protocol: Document 09/27/20 16:16 HH (Rec: 09/27/20 16:52 [email or web address]) Manual Assessments Soft Tissue Assessment Soft Tissue Mobility Assessment mild hypertonicity at lumbar paraspinals bilaterally L>R PT-OP-H Neuro Start: 09/27/20 16:16 Freq: Status: Active Protocol: Document 09/27/20 16:16 HH (Rec: 09/27/20 16:52 [email or web address]) Sensation Evaluation Gross Sensation Gross Sensation WNL Deep Tendon Reflex & Clonus Assessment Deep Tendon Reflex Bilateral Achilles Deep Tendon Reflex 2+ Normal Bilateral Patellar Deep Tendon Reflex 2+ Normal PT-OP-J Posture/Palpation/Skin Start: 09/27/20 16:16 Freq: Status: Active Protocol: Document 09/27/20 16:16 HH (Rec: 09/27/20 16:52 [email or web address]) Posture Evaluation Position Standing T-Spine Posture Flattened L-Spine Posture Flattened,Decreased Lordosis Pelvis Posture Posterior Tilted Knee Posture (L) Genu Recurvatum,(R) Genu Recurvatum PT-OP-K Range of Motion Start: 09/27/20 16:16 Freq: Status: Active Protocol: Document 09/27/20 16:16 HH (Rec: 09/27/20 16:52 [email or web address]) Lumbar Spine Range of Motion Lumbar Spine Active Percentage Testing Position Standing ROM Limitations Soft Tissue Tightness,Pain Comments toe touch test= significant pain noted 14 inches from floor, lack of pelvic rotation and minimal lumbar segmental flexion noted. lateral flexion R= 15 inches lateral flexion L= 16 inches extension = WFL, shoulder pass heels Hip Goniometric Range of Motion Hip Right Active Hip ROM WFL Yes Straight Leg Raise 85 Left Active Hip ROM WFL Yes Straight Leg Raise 80 PT-OP-L Special Tests Start: 09/27/20 16:16 Freq: Status: Active Protocol: Document 09/27/20 16:16 (Rec: 09/27/20 16:52 [email or web address]) Special Tests Hip Special Tests Straight Leg Raise Test Results -ve Comments tightness noted at HS Scour Test Test Results -ve JET Test Results -ve PT-OP-M Strength Start: 09/27/20 16:16 Freq: Status: Active Protocol: Document 09/27/20 16:16 (Rec: 09/27/20 16:52 [email or web address]) Hip Strength Hip Manual Muscle Testing Right Flexion (L2) 4+ Good+ Extension (S1) 4+ Good+ Abduction 4+ Good+ Adduction 4+ Good+ External Rotation 4+ Good+ Internal Rotation 4+ Good+ Left Flexion (L2) 4 Good Extension (S1) 4+ Good+ Abduction 4+ Good+ Adduction 4+ Good+ External Rotation 4+ Good+ Internal Rotation 4+ Good+ Knee Strength Knee Manual Muscle Testing Right Flexion (S2) 5 Normal Extension (L3) 5 Normal Left Flexion (S2) 5 Normal Extension (L3) 5 Normal Ankle/Foot Strength Ankle and Foot Manual Muscle Testing Right Dorsiflexion (L4) 5 Normal Plantarflexion (S1) 5 Normal Left Dorsiflexion (L4) 5 Normal Plantarflexion (S1) 5 Normal PT-OP-Q Treatments Start: 09/27/20 16:16 Freq: Status: Active Protocol: Document 11/15/20 12:58 (Rec: 11/15/20 13:55 [id number]) Cardio Equipment Bicycle (Upright) Duration (Minutes) 6 Resistance 8 Seat Position 6 Therapeutic Exercises Supine Exercises LTR Side bilateral Resistance AROM stretch Reps/Minutes 15 sec x4 Prone Exercises bird dog Side bilateral Reps/Minutes 2x5 Comments UE/LE ext contact table, cued neutral pelvis child's pose Prone Exercise Name into thread needle today Reps/Minutes 20 sec x2 Comments little tighter on L under shld blade - good response to LS & TS range sandra cat camel Prone Exercise Name extension feels better than flexion Side bilateral Reps/Minutes 10 Comments cues on segmental control, pressure at L upper LS Sidelying Exercises open book Sidelying Exercise Name with 1 LE off table, and UE press against it Side bilateral Reps/Minutes x5 Comments end tx rotational dynamic stretching Manual Therapy Treatment Soft Tissue Mobilization QL Body Location B QL Mobilization Type Sustained Pressure,Trigger Point Release Intensity/Depth Deep Body Position Sidelying Paraspinals Body Location Bilateral Mobilization Type Sustained Pressure,Trigger Point Release Intensity/Depth Deep Body Position Prone Comments less discomfort noted . PT-OP-R Modalities Start: 09/27/20 16:16 Freq: Status: Active Protocol: Document 10/11/20 13:05 SP (Rec: 10/11/20 14:29 SP [id number]) Electric Stimulation Electric Stimulation IFC Body Location B LS Duration (Minutes) 8 Intensity 23 Target/Sweep Target Patient Position Sitting Combined With Heat/Cold Hot Pack Comments good tolerance/beneficial PT-OP-T Assessment and Plan Start: 09/27/20 16:16 Freq: Status: Active Protocol: Document 11/15/20 12:58 HH (Rec: 11/15/20 13:55 HH [id number]) Physical Therapy Assessment Goals HEP Impairment pt does not have a HEP Short Term Goal (STG) pt will be compliant to complete HEP safely and independently to improve his overall lumbar mobility and strength STG Duration 8 weeks activity tolerance Impairment pt cannot sit >30 mins, and needed to wear back brace Short Term Goal (STG) pt will be able to sit >30 mins without increase of back pain and able to wean off from using back brace to only at work. STG Duration 4 weeks Senior Care Goal (LTG) pt will be able to sit >1 hour without increase of back pain and able to completely wean off from wearing back brace LTG Duration 8 weeks pain Impairment pt has pain 6/10 frequently Short Term Goal (STG) pt will have no more than 4/10 pain in a daily basis STG Duration 4weeks Senior Care Goal (LTG) pt will have no more than 2/10 pain in a daily basis so pt can have more than 6 hours of sleep per day. LTG Duration 8 weeks oswestry Impairment pt scores 26 on Oswestry Short Term Goal (STG) pt will score <20 on Oswestry to improve his quality of life STG Duration 4 weeks Weight Shifter Goal (LTG) pt will score <15 on Oswestry to improve his quality of life LTG Duration 8 weeks Assessment Summary Assessment Pt had a flare up on 11/11 and his pain is under controlled now. Noticed pt tends to be very cautious with all LE movements. Tx focused on relaxation techniques and slight cardio ex. Physical Therapy Plan Frequency and Duration Frequency of Treatment 2x/Week Duration of Treatment 8 weeks Plan of Care Start Date 09/27/20 Plan of Care End Date 11/26/20 Therapeutic Interventions Therapeutic Interventions Balance Training,Home Exercise Program,Joint Mobilizations, Manual Therapy,Neuromuscular Re-education,Patient/Caregiver Education,Self-Care/Home Management,Soft Tissue Mobilization,Taping, Therapeutic Activities, Therapeutic Exercises Modalities Cold Pack/Ice Massage,Electric Stimulation,Hot Packs, Infrared Therapy,Traction- Mechanical,Ultrasound Next Visit Focus/Plan Next Note Type Treatment Note Next Visit Plan Assess response to standing strengthening, froward, side planks endurance, ROM flexibility. continue Future txs: side plank endurance open book seated flexion
--- NOTE | 2020-12-20 11:30 | PT-OP ANOTE ---
Pt now show 2nd time today. Attempted to contact pt and left voicemail and reminded his remaining appointments. Per EMR, pt has good understanding of his condition and self treatment tools to manage his symptoms. Possible DC if pt agrees.
--- NOTE | 2021-01-05 11:39 | PT.OPDS ---
Current Diagnoses Low back pain (11/15/20) Visit Care Team Role Provider Type Ajith Martin DO Attending Provider Physician Primary Care Provider Referring Provider Specialty: [facility] Address: [address] [place] [address], [facility] Email: [email or web address] Visit Number Visit Number 04/18 Discharge Summary PT-OP-T Assessment and Plan Start: 09/27/20 16:16 Freq: Status: Active Protocol: Document 01/05/21 11:38 HH (Rec: 01/05/21 11:39 [id number]) Physical Therapy Plan Discharge Physical Therapy Discharge Reasons No Longer Attending PT Discharge Comments pt has not been seen since . He no show x2, cancelled multiple appts. Attempted to reach him via phone/ voicemail but no response. DC from PT today.
== END 2021-01-05 11:41 | disposition home or self-care (01) ==
LOC: PHYS 13:00
PROVIDERS: PCP Family Medicine; Referring Provider Family Medicine; Visit Provider Family Medicine
DX: M54.5 Low back pain (principal)
CPT/HCPCS: 97110; 97140; 97161

== ENCOUNTER 2021-01-01 18:16 | Emergency (ER) | payer OTHER, SELFPAY ==
[2021-01-01 19:05] VITALS: BP 101/69; PULSE 63; RESP 15; TEMP 36.7; O2SAT 100; BMI 20.7
--- NOTE | 2021-01-01 20:48 | ED.BACK ---
HPI - Back Pain/Injury General Chief Complaint: Back Pain/Injury Stated Complaint: BACK PAIN Time Seen by Provider: 01/01/21 18:24 Source: patient Limitations: no limitations History of Present Illness HPI Narrative: 25-year-old male daily smoker with history of ankylosing spondylitis presents with a chief complaint of some midline back and rib pain that is been gradually worsening over the past day or 2. He states it goes across his back from left lower to right upper and is worse with motion and improves with rest. He denies any fever chills or traumatic injury. He denies any numbness, tingling or weakness. He denies any trouble controlling bowel bladder. Related Data Previous Rx's Medication Instructions Recorded valacyclovir 1 gram tablet 1,000 mg PO TID #21 tab 08/25/20 tramadol 50 mg tablet 50 mg PO Q8H PRN #20 tab 09/22/20 celecoxib 200 mg capsule (Celebrex) 200 mg PO DAILY #30 cap 09/24/20 lamotrigine 25 mg tablet (Lamictal) 50 mg PO DAILY #180 tab 09/24/20 hydrocodone 5 mg-acetaminophen 325 1 tab PO Q4-6H PRN #10 tab 11/11/20 mg tablet prednisone 10 mg tablet See Rx Instructions .ROUTE 11/11/20 .COMPLEX #30 tab prednisone 10 mg tablet See Rx Instructions .ROUTE 01/01/21 .COMPLEX #30 tab Allergies Allergy/AdvReac Type Severity Reaction Status Date / Time No Known Drug Allergies Allergy Verified 01/01/21 19:09 Review of Systems Review of Systems Narrative: GENERAL: Denies chills, fatigue, malaise, fever, sweats. HEENT: Denies sinus pain, ear pain, sore throat, difficulty swallowing, dizziness. RESPIRATORY: Denies dyspnea, cough, wheezing, hemoptysis, sputum. CARDIOVASCULAR: Denies chest pain, palpitations, orthopnea, edema, GASTROINTESTINAL: Denies nausea, vomiting, abdominal pain, diarrhea, constipation, melena. : Denies dysuria, frequency, incontinence, hematuria, urinary retention. MUSCULOSKELETAL: See HPI SKIN: Denies rash, skin lesions, or other NEUROLOGIC: Denies weakness, headache, numbness, change in speech, confusion, seizures, incoordination. PSYCHIATRIC: No concerning psychosocial issues. 12 point review of systems is negative except for those stated above Patient History Medical History Anxiety (~2012) Bipolar disorder Chronic back pain (~2019) HIV (human immunodeficiency virus infection) (~2019) HSV (herpes simplex virus) anogenital infection Low back pain Migraines (~2013) Peptic ulcer disease (~2010) Polyarthralgia Shoulder pain (~2019) Tinnitus (~2018) Family History Mother Mental health problem Sister Suicide Mental health problem Sister Mental health problem Grandmother Cancer Mental health problem Grandfather Cancer History of heart disease Grandmother Arthritis Social History Smoking Status: Current every day smoker Smoking Status: Current every day smoker tobacco type: cigarettes alcohol intake frequency: holidays/special occasions only Substance Use Type: does not use Exam Narrative Exam Narrative: GEN: AOx3 and in mild distress EYES: Pupils are equal, round, and reactive to light and accommodation. Extraoccular muscles are intact bilaterally. There is no subconjunctival hemorrhage or exudate. CHEST: Lungs are clear to auscultation bilaterally and free of wheezes, rales, or rhonchi. Heart rate is regular rhythm, there are no murmurs, clicks, rubs, or gallops. There is no chest wall tenderness. ABD: Abdomen is soft and nontender. There is no guarding or rebound. Bowel sounds are normal in all 4 quadrants. There is no mass or organomegaly. EXT: Full painless ROM of all extremities with no loss of sensation or strength. BACK: asphalt distributor tender but free of any obvious external abnormalities. Patient exam notes decreased range of motion and muscle spasm, but no CVA tenderness, or vertebral point tenderness. There are no symptoms of cauda equina such as saddle anesthesia, and decreased reflexes, decreased sensation or strength. SKIN: Warm, pink, and dry. No erythema or rash Initial Vital Signs Initial Vital Signs: Vital Signs Temperature 98.1 F 01/01/21 19:05 Pulse Rate 63 01/01/21 19:05 Respiratory Rate 15 01/01/21 19:05 Blood Pressure 101/69 01/01/21 19:05 Pulse Oximetry 100 01/01/21 19:05 Course Orders Ordered: Discontinued Medications Hydrocodone Bitart/Acetaminophen (Hydrocodone/Acet 5/325 Prepack) 1 bottle MISC SEEINSTR ONE Stop: 01/01/21 21:23 Last Admin: 01/01/21 21:27 Dose: 1 bottle Documented by: ONELIA Prednisone (Prednisone 20 Mg Tablet) 60 mg PO NOW ONE Stop: 01/01/21 21:23 Last Admin: 01/01/21 21:27 Dose: 60 mg Documented by: ONELIA Vital Signs Vital signs: Vital Signs - 8 hr 01/01/21 19:05 Temperature 98.1 F Pulse Rate 63 Respiratory Rate 15 Blood Pressure 101/69 Pulse Oximetry 100 Discharge Plan Departure Patient Disposition: Home Clinical Impression: Chronic back pain Qualifiers: Back pain location: thoracic back pain Back pain laterality: right Qualified Code(s): M54.6 - Pain in thoracic spine Instructions: DI for Thoracic Back Pain Activity Restrictions/Additional Instructions: *You have been diagnosed with [back pain and shoulder pain, likely a consequence of your ankylosing spondylitis] *What to do: *Please continue to take your regular medications as directed. [ x] New medication prescriptions sent to your pharmacy: [[facility] ] [ ] New medication written as a paper prescription [ ] No new medications given *Please follow up with your primary care provider in 2-3 days, call for an appointment. Let them know you were seen in the Emergency Department and that we ask that you be seen in follow up. We will electronically transmit a record of today's note if your PCP is in our system *If you do not have a primary care provider please contact the [facility] Resource line at [phone]. They will ask some questions about your medical history and help get you set up with a doctor in the community. *Return to Emergency Department if you should have any new, worsening or concerning symptoms, such as [fever greater than 101 F, shaking chills, worsening pain, persistent vomiting or other bothersome symptoms] Prescriptions: New prednisone 10 mg tablet See Rx Instructions .ROUTE .COMPLEX Qty: 30 RF: 0 No Action tramadol 50 mg tablet 50 mg PO Q8H PRN (Reason: pain) Qty: 20 RF: 0 valacyclovir 1 gram tablet 1,000 mg PO TID Qty: 21 RF: 3 lamotrigine [Lamictal] 25 mg tablet 50 mg PO DAILY Qty: 180 RF: 1 celecoxib [Celebrex] 200 mg capsule 200 mg PO DAILY Qty: 30 RF: 2 prednisone 10 mg tablet See Rx Instructions .ROUTE .COMPLEX Qty: 30 RF: 0 hydrocodone-acetaminophen 5-325 mg tablet 1 tab PO Q4-6H PRN (Reason: pain) Qty: 10 RF: 0 Referrals: Ajith Martin, [Primary Care Provider] - Stand Alone Forms: Work Release Note
[2021-01-01] MEDS: HYDROCODONE/ACET 5/325 PREPACK 1 BOTTLE MISC (21:27)
[2021-01-01] MEDS: predniSONE 20 MG TABLET 60 MG PO (21:27)
[2021-01-01 21:31] VITALS: BP 114/74; PULSE 63; RESP 17; O2SAT 99
== END 2021-01-01 21:32 | disposition home or self-care (01) ==
PROVIDERS: Emergency Provider Emergency Medicine; PCP Family Medicine
DX: M54.6 Pain in thoracic spine (principal); R07.81 Pleurodynia
CPT/HCPCS: 99283

== ENCOUNTER 2021-02-08 18:51 | Emergency (ER) | payer OTHER, SELFPAY ==
[2021-02-08 18:56] VITALS: BP 121/78; PULSE 85; RESP 18; TEMP 36.6; O2SAT 98; BMI 19.9
--- NOTE | 2021-02-08 19:28 | DI.RAD.S_ITS ---
PROCEDURE: XR CHEST 1V INDICATIONS: chest pain TECHNIQUE: One view of the chest was acquired. COMPARISON: None. FINDINGS: Surgical changes and devices: None. Lungs and pleura: Lungs are clear. No pleural effusions or pneumothorax. Mediastinum: Mediastinal contours appear normal. Heart size is normal. Bones and chest wall: No suspicious bony lesions. Overlying soft tissues appear unremarkable. IMPRESSION: No acute cardiopulmonary abnormality. Dictated by: Guy Chery M.D. on 02/08/2021 at 20:19 Approved by: Guy Chery M.D. on 02/08/2021 at 20:20
[2021-02-08 19:47] LABS: Add Manual Diff / Slide Review NO; Basophils Absolute Auto 0 /uL (0-100); Basophils Percent Auto 0.4 % (0-2); Eosinophils Absolute Auto 200 /uL (0-450); Eosinophils Percent Auto 2.3 % (2-4); Hematocrit 42.2 % (41-53); Lymphocytes Absolute Auto 2400 /uL (1100-4500); Lymphocytes Percent Auto 26.8 % (25-40); Mean Corpuscular HGB Conc 33.2 % (30-36); Mean Corpuscular Hemoglobin 29.2 PG (26-34); Mean Corpuscular Volume 87.8 fL (80-100); Monocytes Absolute Auto 600 /uL (0-900); Monocytes Percent Auto 6.2 % (3-14); Neutrophils Absolute Auto 5800 /uL (1500-7000); Neutrophils Percent Auto 64.3 % (50-75); Platelet Count 232 X10^3/uL (150-400); Red Cell Distribution Width 12.7 % (11.6-14.8); White Blood Cell Count 9.1 X10^3/uL (4.5-11.0)
[2021-02-08 19:59] LABS: Alanine Aminotransferase 29 IU/L (<50); Albumin 4.3 g/dL (3.5-5.0); Albumin Globulin Ratio 1.3 (1.0-2.8); Alkaline Phosphatase 56 U/L (38-126); Aspartate Aminotransferase 37 IU/L (17-59); BUN Creatinine Ratio 16.9 (6-22); Bilirubin Total 0.8 mg/dL (0.2-1.3); Blood Urea Nitrogen 14 mg/dL (9-20); Calcium 9.5 mg/dL (8.4-10.2); Carbon Dioxide 29 mmol/L (22-32); Chloride 103 mmol/L (98-107); Creatine Kinase 135 U/L (55-170); Estimated Glomerular Filt Rate > 60.0 mL/min (>60); Globulin 3.2 g/dL (1.7-4.1); Glucose 90 mg/dL (70-100); Lipase 35 U/L (23-300); Magnesium 1.8 mg/dL (1.6-2.3); Sodium 139 mmol/L (137-145); Total Protein 7.5 g/dL (6.3-8.2)
[2021-02-08 20:10] LABS: Troponin I < 0.012 ng/mL (0.01-0.034)
[2021-02-08 20:13] LABS: HEMOLYSIS 88 (0-50)
[2021-02-08 20:14] LABS: Potassium 4.3 mmol/L (3.4-5.1)
[2021-02-08 20:33] LABS: CKMB % Relative Index 0.7 % (1.5-5.0)
--- NOTE | 2021-02-08 21:45 | PC.NURSE ---
Pt states episode of feeling like someone was flicking my heart, along with pain across his left back and shoulder, plus right ha. Started at approximately 1830, states has had similar intermittent since yesterday but today was worse. States in 2018 he had similar issues and has ankylosing spondylitis, scheduled to see event specialist food demonstrator on the .
--- NOTE | 2021-02-08 21:50 | ED_ITS ---
HPI - Chest Pain General Chief Complaint: Chest Pain Stated Complaint: possible heart attack Time Seen by Provider: 02/08/21 21:42 Source: patient Mode of arrival: Ambulatory Limitations: no limitations History of Present Illness HPI narrative: 25-year-old male smoker with history of anxiety, chronic back pain and polyarthralgia presents with a chief complaint of concerns over a heart attack. He states that he has had episodes for many days if not weeks. He has episodes of roaming chest pain that at times are sharp and stabbing at other times feels squeezing. He states that sometimes he has some pain as well as numbness and tingling in his arms. 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 He denies runny nose, sore throat or cough. He denies any recent trauma or injury. He denies fever or chills. He denies history of blood clot or cancer. He denies any obvious provocation Related Data Previous Rx's Medication Instructions Recorded valacyclovir 1 gram tablet 1,000 mg PO TID #21 tab 08/25/20 tramadol 50 mg tablet 50 mg PO Q8H PRN #20 tab 09/22/20 celecoxib 200 mg capsule (Celebrex) 200 mg PO DAILY #30 cap 09/24/20 lamotrigine 25 mg tablet (Lamictal) 50 mg PO DAILY #180 tab 09/24/20 hydrocodone 5 mg-acetaminophen 325 1 tab PO Q4-6H PRN #10 tab 11/11/20 mg tablet prednisone 10 mg tablet See Rx Instructions .ROUTE 11/11/20 .COMPLEX #30 tab prednisone 10 mg tablet See Rx Instructions .ROUTE 01/01/21 .COMPLEX #30 tab Allergies Allergy/AdvReac Type Severity Reaction Status Date / Time No Known Drug Allergies Allergy Verified 02/08/21 19:02 Review of Systems Review of Systems Narrative: GENERAL: Denies chills, fatigue, malaise, fever, sweats. HEENT: Denies sinus pain, ear pain, sore throat, difficulty swallowing, dizziness. RESPIRATORY: D see HPI CARDIOVASCULAR: See HPI GASTROINTESTINAL: Denies nausea, vomiting, abdominal pain, diarrhea, constipation, melena. : Denies dysuria, frequency, incontinence, hematuria, urinary retention. MUSCULOSKELETAL: denies weakness, joint pain, or bony pain SKIN: Denies rash, skin lesions, or other NEUROLOGIC: Denies weakness, headache, numbness, change in speech, confusion, seizures, incoordination. PSYCHIATRIC: No concerning psychosocial issues. 12 point review of systems is negative except for those stated above Patient History Medical History Anxiety (~2012) Bipolar disorder Chronic back pain (~2020) HIV (human immunodeficiency virus infection) (~2019) HSV (herpes simplex virus) anogenital infection Low back pain Migraines (~2013) Peptic ulcer disease (~2010) Polyarthralgia Shoulder pain (~2019) Tinnitus (~2018) Family History Mother Mental health problem Sister Suicide Mental health problem Sister Mental health problem Grandmother Cancer Mental health problem Grandfather Cancer History of heart disease Grandmother Arthritis Social History Smoking Status: Current some day smoker Smoking Status: Current some day smoker tobacco type: cigarettes alcohol intake frequency: holidays/special occasions only Substance Use Type: marijuana Exam Narrative Exam Narrative: GENERAL: [25] year old patient appears stated age. Well- developed patient, in mild distress. HEAD: Atraumatic. Normocephalic. EYES: Pupils equal round and reactive. Extraocular motions intact. No scleral icterus. No injection or drainage. ENT: Nose without bleeding, purulent drainage. Throat without erythema, tonsillar hypertrophy or exudate. Airway patent. NECK: Trachea midline. Non tender CARDIOVASCULAR: Regular rate and rhythm without murmurs, gallops, or rubs. RESPIRATORY: Clear to auscultation. Breath sounds equal bilaterally. No wheezes, rales, or rhonchi. GASTROINTESTINAL: Abdomen soft, non-tender, nondistended. EXTREMITIES: No edema or joint tenderness. BACK: Nontender without deformity or crepitance. No flank tenderness. NEURO: AOx3. SKIN: No rash or erythema of visible areas Initial Vital Signs Initial Vital Signs: Vital Signs Temperature 97.8 F 02/08/21 18:56 Pulse Rate 85 02/08/21 18:56 Respiratory Rate 18 02/08/21 18:56 Blood Pressure 121/78 02/08/21 18:56 Pulse Oximetry 98 08/10/21 18:56 Scores HEART Score Heart Score history: Slightly Suspicious Heart Score EKG: Normal Heart Score Age: < 45 years old Heart Score risk factors: No known risk factors Heart Score troponin: < or = to normal limit Heart Score Total: 0 PERC Score Age greater than or equal to 50 years: No Heart rate greater than or equal to 100 bpm: No Room Air O2 Sat less than 95%: No Unilateral leg swelling: No Recent trauma or surgery: No Hemoptysis: No Prior PE or DVT: No Hormone Use: No Total PERC Score: 0 Wells' Criteria for PE Clinical signs and symptoms of DVT: No PE is #1 Dx or equally likely: No Heart rate > 100: No Immobilization at least 3 days or surg in previous 4 weeks: No History of PE or DVT: No Hemoptysis: No Malignancy w/Treatment within 6 months or palliative: No Wells' PE Score total: 0 Course Orders Ordered: ED Orders 02/08/21 19:02 EKG-12 Lead Routine 02/08/21 19:09 C-Reactive Protein Quant Stat Complete Blood Count AUTO DIFF Stat Comprehensive Metabolic Panel Stat Erythrocyte Sedimentation Rate Stat Lipase Stat Magnesium Stat Troponin & CK Cardiac Panel Stat 02/08/21 19:28 XR chest 1V Stat 02/08/21 21:56 EKG-12 Lead Stat 02/08/21 22:15 Troponin I Stat Vital Signs Vital signs: Vital Signs - 8 hr 02/08/21 21:59 02/09/21 00:01 Pulse Rate 84 68 Respiratory Rate 15 12 Blood Pressure 112/77 104/59 L Pulse Oximetry 99 99 MDM - Chest Pain Lab Data Result diagrams: 02/08/21 19:09 02/08/21 19:09 Labs: Lab Results 02/08/21 02/08/21 02/08/21 Range/Units 19:09 19:09 19:09 WBC 9.1 (4.5-11.0) X10^3/uL RBC 4.80 (4.5-5.9) X10^6/uL Hgb 14.0 (13.5-17.5) g/dL Hct 42.2 (41-53) % MCV 87.8 (80-100) fL MCH 29.2 (26-34) PG MCHC 33.2 (30-36) % RDW 12.7 (11.6-14.8) % Plt Count 232 (150-400) X10^3/uL Neut % (Auto) 64.3 (50-75) % Lymph % (Auto) 26.8 (25-40) % [place] % (Auto) 6.2 (3-14) % Eos % (Auto) 2.3 (2-4) % Baso % (Auto) 0.4 (0-2) % Neut # (Auto) 5800 (2196-3234) /uL Lymph # (Auto) 2400 (4623-8156) /uL [place] # (Auto) 600 (0-900) /uL Eos # (Auto) 200 (0-450) /uL Baso # (Auto) 0 (0-100) /uL ESR 4 (0-15) MM/HR Sodium 139 (137-145) mmol/L Potassium 4.3 (3.4-5.1) mmol/L Chloride 103 (98-107) mmol/L Carbon Dioxide 29 (22-32) mmol/L BUN 14 (9-20) mg/dL Creatinine 0.83 (0.66-1.25) mg/dL Estimated GFR > 60.0 (>60) mL/min BUN/Creatinine Ratio 16.9 (6-22) Glucose 90 (70-100) mg/dL Calcium 9.5 (8.4-10.2) mg/dL Magnesium 1.8 (1.6-2.3) mg/dL Total Bilirubin 0.8 (0.2-1.3) mg/dL AST 37 (17-59) IU/L ALT 29 (<50) IU/L Alkaline Phosphatase 56 (38-126) U/L Total Creatine Kinase 135 (55-170) U/L CK-MB (CK-2) 0.90 (<2.37) ng/mL CK-MB (CK-2) Rel Index 0.7 L (1.5-5.0) % Troponin I < 0.012 (0.01-0.034) ng/mL C-Reactive Protein (<1.0) mg/dL Total Protein 7.5 (6.3-8.2) g/dL Albumin 4.3 (3.5-5.0) g/dL Globulin 3.2 (1.7-4.1) g/dL Albumin/Globulin Ratio 1.3 (1.0-2.8) Lipase 35 (23-300) U/L 02/08/21 02/08/21 Range/Units 19:09 22:15 WBC (4.5-11.0) X10^3/uL RBC (4.5-5.9) X10^6/uL Hgb (13.5-17.5) g/dL Hct (41-53) % MCV (80-100) fL MCH (26-34) PG MCHC (30-36) % RDW (11.6-14.8) % Plt Count (150-400) X10^3/uL Neut % (Auto) (50-75) % Lymph % (Auto) (25-40) % [place] % (Auto) (3-14) % Eos % (Auto) (2-4) % Baso % (Auto) (0-2) % Neut # (Auto) (9719-3627) /uL Lymph # (Auto) (0180-8980) /uL [place] # (Auto) (0-900) /uL Eos # (Auto) (0-450) /uL Baso # (Auto) (0-100) /uL ESR (0-15) MM/HR Sodium (137-145) mmol/L Potassium (3.4-5.1) mmol/L Chloride (98-107) mmol/L Carbon Dioxide (22-32) mmol/L BUN (9-20) mg/dL Creatinine (0.66-1.25) mg/dL Estimated GFR (>60) mL/min BUN/Creatinine Ratio (6-22) Glucose (70-100) mg/dL Calcium (8.4-10.2) mg/dL Magnesium (1.6-2.3) mg/dL Total Bilirubin (0.2-1.3) mg/dL AST (17-59) IU/L ALT (<50) IU/L Alkaline Phosphatase (38-126) U/L Total Creatine Kinase (55-170) U/L CK-MB (CK-2) (<2.37) ng/mL CK-MB (CK-2) Rel Index (1.5-5.0) % Troponin I < 0.012 (0.01-0.034) ng/mL C-Reactive Protein 0.5 (<1.0) mg/dL Total Protein (6.3-8.2) g/dL Albumin (3.5-5.0) g/dL Globulin (1.7-4.1) g/dL Albumin/Globulin Ratio (1.0-2.8) Lipase (23-300) U/L Imaging Data Chest x-ray: Radiologist's Impression: [address] [id number] ReportSigned Patient: Valerio Gallo LMR#: [id number]: 1995Acct:[id number]/Sex: 25 / MDate of Service: 02/08/21Loc: EDAccession Number: [id number] Procedure: XR chest 1V Ordering Provider: Wiley Johnson D.O. PROCEDURE: XR CHEST 1V INDICATIONS: chest pain TECHNIQUE: One view of the chest was acquired. COMPARISON: None. FINDINGS: Surgical changes and devices: None. Lungs and pleura: Lungs are clear. No pleural effusions or pneumothorax. Mediastinum: Mediastinal contours appear normal. Heart size is normal. Bones and chest wall: No suspicious bony lesions. Overlying soft tissues appear unremarkable. IMPRESSION: No acute cardiopulmonary abnormality. Dictated by: Guy Chery M.D. on 02/08/2021 at 20:19 Approved by: Guy Chery M.D. on 02/08/2021 at 20:20 ECG Data Interpretation: EKG is normal sinus rhythm rate [62] and free of any signs of ischemia or ectopy. No ST segmental elevation or depression. No T wave inversions MDM Narrative Medical decision making narrative: Multiple causes of chest pain considered including AL, PE, pneumothorax, pneumonia, aortic dissection, and pleurisy. Patient reports no radiation, no diaphoresis, no provocation with exertion, and no vomiting. Patient's EKG is very reassuring, troponin x2 is normal. Inflammatory markers are unremarkable, pericarditis considered but thought unlikely. Pulmonary embolism considered but thought unlikely given patient's history and physical. The patient has a low risk Wells score and is PERC negative. Patient's symptoms improved over duration of stay with above-stated therapies. Findings and discharge diagnosis discussed with patient/family followed by verbalization of understanding Return precautions discussed with patient/family whom verbalize understanding. Discharge Plan Departure Patient Disposition: Home Clinical Impression: Atypical chest pain Instructions: DI for Atypical Chest Pain Activity Restrictions/Additional Instructions: *You have been diagnosed with [atypical chest pain] *What to do: *Please continue to take your regular medications as directed. [ ] New medication prescriptions sent to your pharmacy: [ ] [ ] New medication written as a paper prescription [x ] No new medications given *Please follow up with your primary care provider in 2-3 days, call for an appointment. Let them know you were seen in the Emergency Department and that we ask that you be seen in follow up. We will electronically transmit a record of today's note if your PCP is in our system *If you do not have a primary care provider please contact the [facility] Resource line at [phone]. They will ask some questions about your medical history and help get you set up with a doctor in the community. *Return to Emergency Department if you should have any new, worsening or concerning symptoms, such as [fever greater than 101 F, shaking chills, worsening pain, persistent vomiting or other bothersome symptoms] Prescriptions: No Action tramadol 50 mg tablet 50 mg PO Q8H PRN (Reason: pain) Qty: 20 RF: 0 valacyclovir 1 gram tablet 1,000 mg PO TID Qty: 21 RF: 3 lamotrigine [Lamictal] 25 mg tablet 50 mg PO DAILY Qty: 180 RF: 1 celecoxib [Celebrex] 200 mg capsule 200 mg PO DAILY Qty: 30 RF: 2 prednisone 10 mg tablet See Rx Instructions .ROUTE .COMPLEX Qty: 30 RF: 0 hydrocodone-acetaminophen 5-325 mg tablet 1 tab PO Q4-6H PRN (Reason: pain) Qty: 10 RF: 0 prednisone 10 mg tablet See Rx Instructions .ROUTE .COMPLEX Qty: 30 RF: 0 Referrals: Roderick Drew MD [Primary Care Provider] - Stand Alone Forms: Work Release Note
[2021-02-08 21:59] VITALS: BP 112/77; PULSE 84; RESP 15; O2SAT 99
[2021-02-08 22:16] LABS: Erythrocyte Sedimentation Rate 4 MM/HR (0-15)
[2021-02-08 22:17] LABS: C-Reactive Protein Quant 0.5 mg/dL (<1.0)
[2021-02-08 22:49] LABS: Troponin I < 0.012 ng/mL (0.01-0.034)
[2021-02-09 00:01] VITALS: BP 104/59; PULSE 68; RESP 12; O2SAT 99
== END 2021-02-09 00:01 | disposition home or self-care (01) ==
PROVIDERS: Emergency Provider Emergency Medicine; PCP Family Medicine
DX: R07.89 Other chest pain (principal); R20.0 Anesthesia of skin
CPT/HCPCS: 71045; 80053; 82550; 82553; 83690; 83735; 84484; 85025; 85651; 86140; 93005; 99281; 99284

== ENCOUNTER → 2022-05-09 14:10 | Outpatient (CLI) | payer OTHER, SELFPAY ==
--- NOTE | 2022-05-09 | DI.RAD.S_ITS ---
PROCEDURE: XR HAND RT MIN 3V INDICATIONS: RIGHT HAND PAIN TECHNIQUE: 3 views of the hand(s) acquired. COMPARISON: None. FINDINGS: Bones: No fractures or dislocations. Carpal bones are normally aligned. No suspicious bony lesions. Soft tissues: No suspicious soft tissue calcifications. IMPRESSION: No fracture. No osseous lesion. If symptoms and/or clinical suspicion for pathology persists, further assessment with repeat radiographs (7-10 days) or advanced imaging (e.g. CT, MRI or bone scan) should be considered. Dictated by: Gianna Shin MD, PhD on 05/09/2022 at 15:23 Approved by: Gianna Shin MD, PhD on 05/09/2022 at 15:24
== END ==
PROVIDERS: PCP Family Medicine; Referring Provider Family Medicine; Visit Provider Family Medicine
DX: M79.641 Pain in right hand (principal)
CPT/HCPCS: 73130

== ENCOUNTER → 2022-05-23 11:14 | Outpatient (CLI) | payer OTHER, SELFPAY ==
--- NOTE | 2022-05-23 | DI.RAD.S_ITS ---
PROCEDURE: XR HAND RT MIN 3V INDICATIONS: RIGHT HAND PAIN TECHNIQUE: 3 views of the hand(s) acquired. COMPARISON: [facility], , XR HAND RT MIN 3V, 05/09/2022, 15:17. FINDINGS: Bones: No fractures or dislocations. Carpal bones are normally aligned. No suspicious bony lesions. Soft tissues: No suspicious soft tissue calcifications. IMPRESSION: No acute osseous abnormality. If symptoms persist, follow-up radiographs and/or CT or MRI may be helpful for further evaluation. Dictated by: Guy Ferrari M.D. on 05/24/2022 at 8:06 Approved by: Guy Ferrari M.D. on 05/24/2022 at 8:15
== END ==
PROVIDERS: PCP Family Medicine; Referring Provider Family Medicine; Visit Provider Family Medicine
DX: M79.641 Pain in right hand (principal)
CPT/HCPCS: 73130